=== PATIENT | female | born 1990 | race Caucasian/White ===

== ENCOUNTER → 2017-05-17 | Outpatient (CLI) | payer SELFPAY ==
--- NOTE | 2017-05-17 17:20 | Diagnostic Imaging Report ---
INDICATION: Dysfunctional uterine bleeding. FINDINGS: The endometrium is thickened and heterogeneous at 1.3 cm. There is no solid myometrial mass. Myometrial cystic focus is somewhat bilobed measuring less than 1 cm. This is separable from the endometrium. The right ovary is obscured from visualization by overlying shadowing bowel gas. The left ovary appears normal. There is no evidence for adnexal torsion. IMPRESSION: Myometrial cystic nodule may be an old degenerated fibroid. No solid myometrial mass. Mild thickening of the endometrium at 1.3 cm. Obscuration of the right ovary. Normal left ovary. No pelvic ascites. Dictated by: Dictated on workstation # [id number]
== END ==
LOC: RAD 10:36
PROVIDERS: ATTEND Family Medicine
DX: N85.8 Other specified noninflammatory disorders of uterus (principal); N92.1 Excessive and frequent menstruation with irregular cycle; N93.8 Other specified abnormal uterine and vaginal bleeding
CPT/HCPCS: 76830; 76856

== ENCOUNTER 2019-02-01 11:38 | Outpatient (RCR) | payer MEDICAID, OTHER ==
[2018-12-05 15:02] LABS: BASOPHILS # (AUTO) 0.1 10^3/uL (0.0-0.1); BASOPHILS % (AUTO) 1 % (0-10); EOSINOPHILS # (AUTO) 0.2 10^3/uL (0.0-0.3); EOSINOPHILS % (AUTO) 2 % (0-10); HEMATOCRIT 34 % (35-52); HEMOGLOBIN 9.7 G/DL (11.5-16.0); LYMPHOCYTES % (AUTO) 30 % (12-44); MEAN CORPUSCULAR HEMOGLOBIN 20 PG (25-34); MEAN CORPUSCULAR HGB CONC 28 G/DL (32-36); MEAN CORPUSCULAR VOLUME 71 FL (80-99); MEAN PLATELET VOLUME 10.2 FL (7.4-10.4); MONOCYTES # (AUTO) 0.6 X 10^3 (0.0-1.0); MONOCYTES % (AUTO) 5 % (0-12); NEUTROPHILS # (AUTO) 8.2 X 10^3 (1.8-7.8); NEUTROPHILS % (AUTO) 63 % (42-75); PLATELET COUNT 326 10^3/uL (130-400); RED CELL DISTRIBUTION WIDTH 27.2 % (10.0-14.5); WHITE BLOOD COUNT 13.1 10^3/uL (4.3-11.0)
[2019-01-23 11:42] LABS: BASOPHILS # (AUTO) 0.1 10^3/uL (0.0-0.1); BASOPHILS % (AUTO) 1 % (0-10); EOSINOPHILS # (AUTO) 0.2 10^3/uL (0.0-0.3); EOSINOPHILS % (AUTO) 1 % (0-10); HEMATOCRIT 40 % (35-52); HEMOGLOBIN 12.4 G/DL (11.5-16.0); LYMPHOCYTES # (AUTO) 3.3 X 10^3 (1.0-4.0); LYMPHOCYTES % (AUTO) 27 % (12-44); MEAN CORPUSCULAR HEMOGLOBIN 24 PG (25-34); MEAN CORPUSCULAR HGB CONC 31 G/DL (32-36); MEAN CORPUSCULAR VOLUME 78 FL (80-99); MEAN PLATELET VOLUME 10.6 FL (7.4-10.4); MONOCYTES # (AUTO) 0.6 X 10^3 (0.0-1.0); MONOCYTES % (AUTO) 5 % (0-12); NEUTROPHILS # (AUTO) 8.2 X 10^3 (1.8-7.8); NEUTROPHILS % (AUTO) 66 % (42-75); PLATELET COUNT 305 10^3/uL (130-400); RED CELL DISTRIBUTION WIDTH 23.5 % (10.0-14.5); WHITE BLOOD COUNT 12.3 10^3/uL (4.3-11.0)
[2019-01-23 11:58] LABS: FIBRIN DEGRADATION PRODUCTS 0.8 UG/ML (0.00-0.49); PROTHROMBIN TIME PATIENT 13.4 SEC (12.2-14.7)
[2019-01-23 12:02] LABS: ALANINE AMINOTRANSFERASE 37 U/L (0-55); ALBUMIN 4.1 GM/DL (3.2-4.5); ALKALINE PHOSPHATASE 70 U/L (40-136); BILIRUBIN,TOTAL 0.4 MG/DL (0.1-1.0); BUN/CREATININE RATIO 17; CALCIUM 9.6 MG/DL (8.5-10.1); CARBON DIOXIDE 23 MMOL/L (21-32); CHLORIDE 105 MMOL/L (98-107); CREATININE SERUM 0.69 MG/DL (0.60-1.30); GFR ESTIMATED > 60; GLUCOSE 122 MG/DL (70-105); POTASSIUM 4.1 MMOL/L (3.6-5.0); SODIUM 138 MMOL/L (135-145); TOTAL PROTEIN 7.8 GM/DL (6.4-8.2)
[~2019-02-01 11:38] MED LIST: ACETAMINOPHEN 500 MG TAB (TYLENOL) CANCER CTR ONE; ACETAMINOPHEN 500 MG TAB (TYLENOL) CANCER CTR PO PRN; FERRIC CARBOXYMALTOSE (CANCER) 750 MG in NS (IVPB) CANCER CENTER 250 ML IV SCH; IRON SUCROSE 100 MG/5 ML (VENOFER) VIAL CANCER CTR IV SCH; diphenhydrAMINE 50 MG/ML INJ (CANCER CENTER) IV PRN; diphenhydrAMINE 50 MG/ML INJ (CANCER CENTER) ONE; methylPREDNISolone 125 MG/2 ML (SOLU-MEDROL) CANCER CTR IV PRN
== END 2019-02-07 | disposition home or self-care (01) ==
LOC: ONC 11:38
PROVIDERS: ATTEND Internal Medicine Hematology & Oncology
DX: D50.9 Iron deficiency anemia, unspecified (principal); N92.0 Excessive and frequent menstruation with regular cycle; K52.9 Noninfective gastroenteritis and colitis, unspecified; E03.9 Hypothyroidism, unspecified; G43.909 Migraine, unspecified, not intractable, without status migrainosus; E66.01 Morbid (severe) obesity due to excess calories; Z68.41 Body mass index [BMI] 40.0-44.9, adult; Z79.899 Other long term (current) drug therapy
CPT/HCPCS: 36415; 80053; 82728; 83540; 85025; 85379; 85384; 85610; 85730; 96374; 96375; 99213; 99214

== ENCOUNTER → 2020-10-06 | Outpatient (CLI) | payer BC ==
--- NOTE | 2020-10-06 11:46 | Diagnostic Imaging Report ---
PROCEDURE: Pelvic comp/transvaginal sonogram. TECHNIQUE: Complete transabdominal and transvaginal pelvic ultrasound was performed. In addition, limited pelvic Doppler was performed. INDICATION: Secondary amenorrhea. FINDINGS: Uterus is anteverted measuring 9.0 x 4.2 x 4.9 cm. Endometrium is 11 mm in thickness. No myometrial mass is identified on today's study. Right ovary was not visualized. Left ovary measures 3.7 x 2.2 x 1.9 cm. Left ovary contains small follicles. There is blood flow to left ovary. No adnexal mass or free fluid is seen. There are multiple cervical nabothian cysts. IMPRESSION: Nonvisualized right ovary. The study is otherwise unremarkable. Dictated by: Dictated on workstation # [id number]
== END ==
LOC: RAD 09:51
PROVIDERS: ATTEND Obstetrics & Gynecology
DX: N91.1 Secondary amenorrhea (principal)
CPT/HCPCS: 76830; 76856

== ENCOUNTER 2021-06-09 18:57 | Inpatient (IN) | payer SELFPAY ==
[~2021-06-09] VITALS: Ht 167.7 cm; Wt 125.1 kg
[2021-06-09] MEDS ORDERED: NS IV 1000 ML 1,000 ML IV SCH (19:15)
--- NOTE | 2021-06-09 19:31 | ED General ---
General Stated Complaint: COVID+,FINGERS AND LIPS BLUE,TROUBLE BREATHING Source of Information: Patient History of Present Illness Date Seen by Provider: Jun 09, 2021 Time Seen by Provider: 19:06 Initial Comments 31-year-old female presenting with complaints of shortness of breath and feeling like her lips and fingers were blue. She was diagnosed with Covid on of last week with a test at urgent care here in [place]. She states that her sister and child were both recently positive for Covid. She just started having diarrhea today. She has been having fevers up to 103 T-max over the last week. She said that today was the first day she was able to actually break her fever. She recently moved to [place] and does not have a primary care physician. She denies any other chronic medical conditions. She does not take any chronic medications. She has an allergy to penicillin that she thinks causes a rash. Timing/Duration: 1 Week Severity: Severe Modifying Factors: worse with Movement (more winded and short of breath with exertion) Associated Systoms: No Chest Pain; Cough; No Diaphoresis; Fever/Chills, Headaches, Malaise; No Nausea/Vomiting, No Seizure; Shortness of Air; No Syncope; Weakness Allergies and Home Medications Allergies Coded Allergies: ferric carboxymaltose (Verified Allergy, Intermediate, 11/16/18) Penicillins (Verified Allergy, Unknown, 11/16/18) Patient Home Medication List Home Medication List Reviewed: Yes Review of Systems Review of Systems Constitutional: chills, fever, malaise EENTM: nose congestion Respiratory: cough, dyspnea on exertion, short of breath; No stridor; wheezing Cardiovascular: No chest pain, No edema Gastrointestinal: No abdominal pain; diarrhea; No nausea, No vomiting Genitourinary: No dysuria Musculoskeletal: muscle pain (generalized body aches) Skin: No rash Psychiatric/Neurological: Headache Hematologic/Lymphatic: Denies Blood Clots Past Cvzjhfl-Bmbuzr-Gfzrko Hx Patient Social History Tobacco Use?: No Past Medical History Respiratory: No Cardiac: No Neurological: No Reproductive Disorders: No Genitourinary: No Gastrointestinal: No Musculoskeletal: No Endocrine: No HEENT: No Psychosocial: No Physical Exam Vital Signs Vital Signs - First Documented 06/09/21 19:05 Temp 37.1 Pulse 105 Resp 20 B/P (MAP) 130/66 (87) Pulse Ox 72 O2 Delivery Room Air O2 Flow Rate 8.00 Capillary Refill : Height, Weight, BMI Height: '" Weight: lbs. oz. kg; BMI Method: General Appearance: Anxious, Mild Distress, Obese HEENT: PERRL/EOMI, Pharynx Normal Neck: Full Range of Motion, Normal Inspection, Non Tender, Supple Respiratory: Chest Non Tender, Accessory Muscle Use, Decreased Breath Sounds, Respiratory Distress, Rhonci Cardiovascular: Normal Peripheral Pulses, Tachycardia Gastrointestinal: Normal Bowel Sounds, No Pulsatile Mass, Non Tender, Soft Rectal: Deferred Back: No CVA Tenderness Extremity: Normal Capillary Refill, Normal Inspection, No Calf Tenderness, No Pedal Edema Neurologic/Psychiatric: Alert, Oriented x3, steam box tender II-XII Norm as Tested Skin: Warm/Dry Focused Exam Lactate Level 06/09/21 19:36: Lactic Acid Level 1.04 Lactic Acid Level Laboratory Tests Test 06/09/21 19:36 Lactic Acid Level 1.04 MMOL/L (0.50-2.00) Progress/Results/Core Measures Suspected Sepsis SIRS Temperature: Pulse: Respiratory Rate: Laboratory Tests 06/09/21 19:36: White Blood Count 5.4 Blood Pressure / Mean: 06/09/21 19:36: Lactic Acid Level 1.04 Laboratory Tests 06/09/21 19:36: Creatinine 0.78, INR Comment 1.0, Platelet Count 193, Total Bilirubin 0.5 Results/Orders Lab Results Laboratory Tests Test 06/09/21 19:36 06/09/21 20:04 Range/Units White Blood Count 5.4 4.3-11.0 10^3/uL Red Blood Count 4.46 3.80-5.11 10^6/uL Hemoglobin 9.6 L 11.5-16.0 g/dL Hematocrit 32 L 35-52 % Mean Corpuscular Volume 71 L 80-99 fL Mean Corpuscular Hemoglobin 22 L 25-34 pg Mean Corpuscular Hemoglobin Concent 30 L 32-36 g/dL Red Cell Distribution Width 18.5 H 10.0-14.5 % Platelet Count 193 130-400 10^3/uL Mean Platelet Volume 11.5 9.0-12.2 fL Immature Granulocyte % (Auto) 1 % Neutrophils (%) (Auto) 71 42-75 % Lymphocytes (%) (Auto) 26 12-44 % Monocytes (%) (Auto) 2 0-12 % Eosinophils (%) (Auto) 0 0-10 % Basophils (%) (Auto) 0 0-10 % Neutrophils # (Auto) 3.9 1.8-7.8 X 10^3 Lymphocytes # (Auto) 1.4 1.0-4.0 X 10^3 Monocytes # (Auto) 0.1 0.0-1.0 X 10^3 Eosinophils # (Auto) 0.0 0.0-0.3 10^3/uL Basophils # (Auto) 0.0 0.0-0.1 10^3/uL Immature Granulocyte # (Auto) 0.0 0.0-0.1 10^3/uL Prothrombin Time 13.8 12.2-14.7 SEC INR Comment 1.0 0.8-1.4 Activated Partial Thromboplast Time 33 24-35 SEC D-Dimer 0.92 H 0.00-0.49 UG/ML Sodium Level 136 135-145 MMOL/L Potassium Level 3.0 L 3.6-5.0 MMOL/L Chloride Level 97 L 98-107 MMOL/L Carbon Dioxide Level 25 21-32 MMOL/L Anion Gap 14 5-14 MMOL/L Blood Urea Nitrogen 5 L 7-18 MG/DL Creatinine 0.78 0.60-1.30 MG/DL Estimat Glomerular Filtration Rate 87 BUN/Creatinine Ratio 6 Glucose Level 93 70-105 MG/DL Lactic Acid Level 1.04 0.50-2.00 MMOL/L Calcium Level 8.1 L 8.5-10.1 MG/DL Corrected Calcium 8.3 L 8.5-10.1 MG/DL Total Bilirubin 0.5 0.1-1.0 MG/DL Aspartate Amino Transf (AST/SGOT) 34 5-34 U/L Alanine Aminotransferase (ALT/SGPT) 23 0-55 U/L Alkaline Phosphatase 54 40-136 U/L Troponin I < 0.30 <0.30 NG/ML C-Reactive Protein 17.44 H <0.50 MG/DL Total Protein 7.7 6.4-8.2 GM/DL Albumin 3.7 3.2-4.5 GM/DL Serum Test, Qualitative NEGATIVE NEGATIVE Blood Gas Puncture Site LEFT RADIAL Blood Gas Patient Temperature 37.1 Arterial Blood pH 7.45 H 7.37-7.43 Arterial Blood Partial Pressure CO2 39 35-45 MMHG Arterial Blood Partial Pressure O2 59 L 79-93 MMHG Arterial Blood HCO3 27 23-27 MMOL/L Arterial Blood Total CO2 28.3 21.0-31.0 MMOL/L Arterial Blood Oxygen Saturation 91 L 94-100 % Arterial Blood Base Excess 3.0 H -2.5-2.5 MMOL/L Meng Test YES-POS Blood Gas Ventilator Setting NO Blood Gas Inspired Oxygen 8 L My Orders Orders - ZIGGY SANCHEZ MD Monitor-Rhythm Ecg Trace Only (06/09/21 19:07) Ed Iv/Invasive Line Start (06/09/21 19:07) Cbc With Automated Diff (06/09/21 19:07) Comprehensive Metabolic Panel (06/09/21 19:07) Crp Fs (06/09/21 19:07) Troponin I Fs (06/09/21 19:07) Protime With Inr (06/09/21 19:07) Partial Thromboplastin Time (06/09/21 19:07) Ekg Tracing (06/09/21 19:07) Arterial Blood Gas (06/09/21 19:07) Ns Iv 1000 Ml (Sodium Chloride 0.9%) (06/09/21 19:15) Blood Culture (06/09/21 19:07) Ua Culture If Indicated (06/09/21 19:07) Hcg,Qualitative Serum (06/09/21 19:07) Fibrin Degradation Products (06/09/21 19:07) Chest 1 View Ap/Pa Only (06/09/21 19:07) O2 (06/09/21 19:07) Lactic Acid Analyzer (06/09/21 19:07) Albuterol Inhaler (Albuterol) (06/09/21 19:45) Dexamethasone Injection (Decadron Inje (06/09/21 19:42) Nursing Communication (Order) (06/09/21 19:45) Medications Given in ED Current Medications Medications Dose Ordered Sig/Nisha Route Start Time Stop Time Status Last Admin Dose Admin Albuterol Sulfate 2 PUFFS [id number] prn soa Q2H PRN IH 06/09/21 19:45 06/09/21 19:56 8.5 GM Vital Signs/I&O 06/09/21 06/09/21 19:05 19:05 Temp 37.1 Pulse 105 Resp 20 B/P (MAP) 130/66 (87) Pulse Ox 72 92 O2 Delivery Room Air Nasal Cannula O2 Flow Rate 8.00 Capillary Refill : Progress Note #1: Progress Note Placed on supplemental oxygen as she was having O2 sats in the 70% range on room air. Obtain labs, blood cultures, lactic acid, electrocardiogram, chest x-ray, urinalysis, D-Dimer. Give IV fluids for hydration. IV Decadron for her breathing. Try albuterol inhaler with spacer to help with her breathing. Anticipate admission of the patient since she is requiring supplemental oxygen to maintain O2 sat above 90% Progress Note #2: Progress Note Patient's oxygen saturations improved on 8 L high flow O2 by nasal cannula. She came up to 92 to 94%. Her chest x-ray shows diffuse patchy infiltrate consistent with atypical pneumonia or Covid. Her blood count was normal at 5.4 with some mild anemia having a hemoglobin of 9.6. Her lactic acid came back negative at 1.04. Her creatinine was normal at 0.78. Cardiac enzymes were normal. She did have elevated CRP. Her ABG showed pH of 7.45, PCO2 of 39, PO2 of 59. This came out to an O2 sat of 91%. She was he was on 8 L/min of supplemental oxygen by high flow nasal cannula Will call Dr. Plasencia for the hospitalist service about admission Progress Note #3: Time: 20:28 Progress Note Discussed with Dr. Plasencia and he accepted patient for admission. He did request to give her Lovenox 40 mg subcu every 12 hours with her elevated D-dimer and Covid pneumonia. Will use the Covid order set for the admission and RT MAT protocol. [facility] are [facility] as well. ECG Initial ECG Impression Date: Jun 09, 2021 Initial ECG Impression Time: 19:33 Initial ECG Rate: 103 Initial ECG Rhythm: S.Tach Initial ECG Comparisson: No Previous ECG Available Comment Sinus tachycardia with a heart rate of 103 bpm. Low voltage precordial leads. [place] interval 158 ms. QT interval 329 ms. Her QTc interval is 431 ms. She has no acute ST elevation. She has nonspecific T wave abnormalities in the anteroseptal leads I, aVL, V2 through V6. She has no prior tracing for comparison. Diagnostic Imaging Diagonstic Imaging: Xray Plain Films/CT/US/NM/MRI: chest Comments NAME: KAMERON LOPEZ [facility] REC#: [id number] PT STATUS: REG ER : 1990 PHYSICIAN: ZIGGY SANCHEZ MD ADMIT DATE: 06/09/21/ER FS Draft Date of Exam:06/09/21 CHEST 1 VIEW AP/PA ONLY INDICATION: Hypoxia and shortness of breath. FINDINGS: The heart size is normal. There are bilateral pulmonary infiltrates, right greater than left. There is no pleural effusion or pneumothorax. The mediastinum is unremarkable. IMPRESSION: Bilateral pulmonary infiltrates suspect for atypical pneumonia possibly Covid. Some underlying central pulmonary venous congestion cannot be excluded. Dictated on workstation # [id number] Dict: 06/09/211942 Trans: 06/09/211947 [facility] [id number] Interpreted by: ALEKS SNYDER MD Electronically signed by: Reviewed: Reviewed by Me Departure Communication (Admissions) Time/Spoke to Admitting Phy: 20:[address] Plasencia for the hospitalist service. He accepts the patient for admission with Covid pneumonia and hypoxia. He recommended giving Lovenox 40 mg subcu every 12 hours with her elevated D-dimer. Will trend the D-dimer rather depend obtaining CT scan of her chest at this point. Use the Covid order set and RT MAT protocol. Impression Primary Impression: Hypoxemia Additional Impressions: Lower respiratory tract infection due to COVID-19 virus Diarrhea due to COVID-19 Disposition: 30 STILL A PATIENT Condition: Critical Admissions Decision to Admit Reason: Admit from ER (General) Decision to Admit/Date: Jun 09, 2021 Time/Decision to Admit Time: 20:28 Departure-Patient Inst. Referrals: NO,LOCAL PHYSICIAN (PCP/Family) Primary Care Physician ZIGGY SANCHEZ MD Jun 09, 2021 19:31
[2021-06-09] MEDS ORDERED: RT-ALBUTEROL HFA 8.5 GM INHALER IH PRN ×3 (19:45→23:15)
--- NOTE | 2021-06-09 19:49 | Diagnostic Imaging Report ---
INDICATION: Hypoxia and shortness of breath. FINDINGS: The heart size is normal. There are bilateral pulmonary infiltrates, right greater than left. There is no pleural effusion or pneumothorax. The mediastinum is unremarkable. IMPRESSION: Bilateral pulmonary infiltrates suspect for atypical pneumonia possibly Covid. Some underlying central pulmonary venous congestion cannot be excluded. Dictated by: Dictated on workstation # [id number]
[2021-06-09 19:59] LABS: BASOPHILS % (AUTO) 0 % (0-10); EOSINOPHILS % (AUTO) 0 % (0-10); HEMATOCRIT 32 % (35-52); HEMOGLOBIN 9.6 g/dL (11.5-16.0); LYMPHOCYTES % (AUTO) 26 % (12-44); MEAN CORPUSCULAR HEMOGLOBIN 22 pg (25-34); MEAN CORPUSCULAR HGB CONC 30 g/dL (32-36); MEAN CORPUSCULAR VOLUME 71 fL (80-99); MEAN PLATELET VOLUME 11.5 fL (9.0-12.2); NEUTROPHILS % (AUTO) 71 % (42-75); PLATELET COUNT 193 10^3/uL (130-400); WHITE BLOOD COUNT 5.4 10^3/uL (4.3-11.0)
[2021-06-09 20:00] LABS: LYMPHOCYTES # (AUTO) 1.4 X 10^3 (1.0-4.0); MONOCYTES # (AUTO) 0.1 X 10^3 (0.0-1.0); MONOCYTES % (AUTO) 2 % (0-12); NEUTROPHILS # (AUTO) 3.9 X 10^3 (1.8-7.8)
[2021-06-09 20:09] LABS: ABG OXYGEN SATURATION 91 % (94-100); ABG PCO2 39 MMHG (35-45); ABG PH 7.45 (7.37-7.43); ABG PO2 59 MMHG (79-93); ABG TCO2 28.3 MMOL/L (21.0-31.0); ALLENS TEST YES-POS; INSPIRED O2 8 L; PATIENT TEMP 37.1; VENTILATOR NO
[2021-06-09 20:10] LABS: PROTHROMBIN TIME PATIENT 13.8 SEC (12.2-14.7)
[2021-06-09 20:13] LABS: ALANINE AMINOTRANSFERASE 23 U/L (0-55); ALBUMIN 3.7 GM/DL (3.2-4.5); ALKALINE PHOSPHATASE 54 U/L (40-136); BILIRUBIN,TOTAL 0.5 MG/DL (0.1-1.0); BUN/CREATININE RATIO 6; CALCIUM 8.1 MG/DL (8.5-10.1); CARBON DIOXIDE 25 MMOL/L (21-32); CHLORIDE 97 MMOL/L (98-107); CREATININE SERUM 0.78 MG/DL (0.60-1.30); GFR ESTIMATED 87; GLUCOSE 93 MG/DL (70-105); SODIUM 136 MMOL/L (135-145); TOTAL PROTEIN 7.7 GM/DL (6.4-8.2)
[2021-06-09 21:21] LABS: BILIRUBIN,URINE NEGATIVE (NEGATIVE); CLARITY,URINE SL CLOUDY; COLOR,URINE RED; GLUCOSE, URINE (UA) NEGATIVE (NEGATIVE); KETONES,URINE NEGATIVE (NEGATIVE); LEUKOCYTE ESTERASE ,URINE NEGATIVE (NEGATIVE); NITRITE,URINE NEGATIVE (NEGATIVE); PROTEIN,URINE 2+ (NEGATIVE)
[2021-06-09 21:26] LABS: BACTERIA,URINE NEGATIVE /HPF; RBC,URINE >100 /HPF
[2021-06-09] MEDS ORDERED: ONDANSETRON 4 MG (ZOFRAN) ORAL DISSOLVE TAB PO PRN (22:15)
[2021-06-09] MEDS: ENOXAPARIN 40 MG/0.4 ML (LOVENOX) SYR SC SCH (22:28)
[2021-06-09] MEDS: LACTATED RINGERS 1,000 ML IV SCH (22:28)
[2021-06-09] MEDS: guaiFENesin SYRUP 100 MG/5 ML 10 ML (ROBITUSSIN SF) PO SCH (22:28)
[2021-06-09] MEDS: ACETAMINOPHEN 325 MG TABLET PO PRN (22:30)
[2021-06-09 22:57] VITALS: BP 129/65
--- NOTE | 2021-06-09 23:23 | Tele-ICU Progress Note ---
Progress Note 31F admitted with hypoxia, COVID. Reportedly tested positive last Thurs. Has been having increasing SOB since. Today noted progressive worsening in addition to cyanosis of fingers and mouth prompting ED visit. On arrival, found to have SpO2 65-70% on RA. Initiated on 8L HFNC wutg SpO2 92-94%. She arrived from [facility] in stable condition. BP 127/77. SpO2 in 80s onHFNC, 90s after transition to vapotherm. COVID protocol initiated, supportive care ongoing. Appears stable at this time but high risk for further decompensation given recent trajectory. Focused Exam Lactate Level 06/09/21 19:36: Lactic Acid Level 1.04 Height, Weight, BMI Height: '" Weight: lbs. oz. kg; 44.44 BMI Method: Lactic Acid Level Laboratory Tests Test 06/09/21 19:36 Lactic Acid Level 1.04 MMOL/L (0.50-2.00) BERTRAND AMBRIZ MD Jun 09, 2021 23:23
[2021-06-10] MEDS: guaiFENesin SYRUP 100 MG/5 ML 10 ML (ROBITUSSIN SF) PO SCH (02:27)
[2021-06-10 05:09] LABS: BASOPHILS % (AUTO) 0 % (0-10); EOSINOPHILS % (AUTO) 0 % (0-10); HEMATOCRIT 30 % (35-52); HEMOGLOBIN 9.1 g/dL (11.5-16.0); LYMPHOCYTES # (AUTO) 0.7 10^3/uL (1.0-4.0); LYMPHOCYTES % (AUTO) 16 % (12-44); MEAN CORPUSCULAR HEMOGLOBIN 22 pg (25-34); MEAN CORPUSCULAR HGB CONC 30 g/dL (32-36); MEAN CORPUSCULAR VOLUME 71 fL (80-99); MEAN PLATELET VOLUME 11.2 fL (9.0-12.2); MONOCYTES # (AUTO) 0.1 10^3/uL (0.0-1.0); MONOCYTES % (AUTO) 2 % (0-12); NEUTROPHILS # (AUTO) 3.3 10^3/uL (1.8-7.8); NEUTROPHILS % (AUTO) 81 % (42-75); PLATELET COUNT 190 10^3/uL (130-400)
[2021-06-10 05:21] LABS: ALBUMIN 3.5 GM/DL (3.2-4.5); POTASSIUM 3.4 MMOL/L (3.6-5.0)
[2021-06-10 05:22] LABS: CALCIUM 8.1 MG/DL (8.5-10.1)
[2021-06-10 05:23] LABS: TOTAL PROTEIN 7.2 GM/DL (6.4-8.2)
[2021-06-10 05:25] LABS: BILIRUBIN,TOTAL 0.4 MG/DL (0.1-1.0)
[2021-06-10 05:27] LABS: CREATININE SERUM 0.7 MG/DL (0.60-1.30); PHOSPHORUS 3.9 MG/DL (2.3-4.7)
[2021-06-10 05:36] LABS: ATYPICAL LYMPHOCYTES 1 %; LYMPHOCYTES % (MANUAL) 17 %; MONOCYTES % (MANUAL) 2 %; NEUTROPHILS % (MANUAL) 80 %; POLYCHROMASIA SLIGHT
[2021-06-10 05:37] LABS: ANISOCYTOSIS SLIGHT; ELLIPT/OVALOCYTES SLIGHT; HYPOCHROMASIA MODERATE; MICROCYTOSIS SLIGHT; POIKILOCYTOSIS SLIGHT
[2021-06-10] MEDS ORDERED: guaiFENesin/CODEINE (ROBITUSSIN AC) 10ML UDC PO PRN (06:30)
[2021-06-10 06:43] LABS: CREATINE KINASE MB 0.7 NG/ML (<6.6)
[2021-06-10] MEDS ORDERED: FLU QUADRIvalent (3YOA+) 60 mcg/0.5 ml 2021-22(AFLURIA) IM ONE (07:15)
[2021-06-10] MEDS: RT-ALBUTEROL HFA 8.5 GM INHALER IH SCH ×7 (07:37→22:30)
[2021-06-10] MEDS: POTASSIUM CL 10MEQ/50ML IVPB 50 ML IV SCH (07:45)
[2021-06-10] MEDS: KCL 20 MEQ TAB (K-DUR) PO SCH (07:46)
[2021-06-10] MEDS: MAGNESIUM 1 GM/100 ML IVPB 100 ML IV SCH (07:46)
[2021-06-10] MEDS ORDERED: KCL 20 MEQ TAB (K-DUR) PO ONE (08:00)
[2021-06-10] MEDS: ACETAMINOPHEN 325 MG TABLET PO PRN ×2 (08:21→20:05)
[2021-06-10] MEDS: guaiFENesin (MUCINEX) 600 MG TAB PO SCH ×3 (08:21→20:05)
[2021-06-10] MEDS: dexAMETHasone 6 MG TAB (DECADRON) PO SCH (08:21)
[2021-06-10] MEDS: BENZONATATE 100 MG (TESSALON) CAPSULE PO SCH ×3 (08:22→20:05)
[2021-06-10] MEDS: ENOXAPARIN 40 MG/0.4 ML (LOVENOX) SYR SC SCH ×2 (08:22→20:06)
[2021-06-10] MEDS: UMECLIDINIUM BROMIDE (INCRUSE ELLIPTA) 7'S IH SCH ×2 (10:31→10:50)
[2021-06-10] MEDS ORDERED: ACET-2267 PO (10:55)
[2021-06-10] MEDS ORDERED: IBUP-2185 PO (10:55)
[2021-06-10] MEDS ORDERED: ALBU18HF2 INH (10:55)
[2021-06-10] MEDS ORDERED: TOCILIZUMAB INJECTION (NON-FOR 800 MG in NS (IVPB) 60 ML IV NR (13:11)
--- NOTE | 2021-06-10 14:14 | Tele-ICU Progress Note ---
Subjective Date Seen by a Provider: Jun 10, 2021 Time Seen by a Provider: 11:25 Subjective/Events-last exam STILL HAS SHORTNESS OF BREATH. ON VT. MORBIDLY OBESE. Sepsis Event Evaluation Height, Weight, BMI Height: '" Weight: lbs. oz. kg; 44.44 BMI Method: Focused Exam Lactate Level 06/09/21 19:36: Lactic Acid Level 1.04 Exam Exam Patient acknowledged, consented, and participated in this virtual visit which was conducted using real time audio/video Vital Signs Date Time Temp Pulse Resp B/P (MAP) Pulse Ox O2 Delivery O2 Flow Rate FiO2 06/10/21 12:57 92 06/10/21 12:00 88 20 122/68 97 Vapotherm 40.00 100.00 06/10/21 11:47 35.9 06/10/21 11:43 37.3 06/10/21 11:00 103 18 128/71 90 Vapotherm 40.00 100.00 06/10/21 10:32 95 Vapotherm 40.00 90 06/10/21 10:00 88 28 124/62 90 Vapotherm 40.00 100.00 06/10/21 09:00 92 28 113/69 93 Vapotherm 40.00 100.00 06/10/21 08:00 91 26 134/74 90 Vapotherm 40.00 100.00 06/10/21 07:37 90 Vapotherm 30.00 100 06/10/21 07:15 81 06/10/21 07:00 76 24 127/71 94 Vapotherm 30.00 65.00 06/10/21 06:00 79 120/61 91 Vapotherm 30.00 65.00 06/10/21 05:00 78 17 115/59 91 Vapotherm 30.00 65.00 06/10/21 04:00 37.2 06/10/21 04:00 84 30 114/61 91 Vapotherm 30.00 65.00 06/10/21 04:00 91 Vapotherm 30.00 80 06/10/21 03:00 90 32 121/60 91 Vapotherm 30.00 65.00 06/10/21 02:41 90 Vapotherm 30.00 80 06/10/21 02:00 85 30 125/67 91 Vapotherm 30.00 65.00 06/10/21 01:00 92 06/10/21 01:00 86 30 139/90 92 Vapotherm 30.00 65.00 06/10/21 00:00 97 122/64 91 Vapotherm 30.00 65.00 06/10/21 00:00 91 Vapotherm 30.00 80 06/09/21 23:47 110 06/09/21 23:00 95 29 122/71 91 Vapotherm 30.00 65.00 06/09/21 23:00 92 Vapotherm 30.00 70 06/09/21 22:57 38.3 107 72 60 06/09/21 22:45 Vapotherm 30.00 80 06/09/21 22:30 38.3 06/09/21 22:00 105 27 84 Nasal Cannula 8.00 06/09/21 21:00 107 20 129/65 92 Nasal Cannula 8.00 06/09/21 20:30 103 20 126/66 93 Nasal Cannula 8.00 06/09/21 20:00 101 20 109/60 93 Nasal Cannula 8.00 06/09/21 19:30 105 20 109/61 92 Nasal Cannula 8.00 06/09/21 19:05 92 Nasal Cannula 8.00 06/09/21 19:05 37.1 105 20 130/66 (87) 72 Room Air I & O 06/10/21 07:00 Intake Total 1800 ml Output Total 200 ml Balance 1600 ml Height & Weight Height: '" Weight: lbs. oz. kg; 44.44 BMI Method: General Appearance: Anxious, Mild Distress, Obese HEENT: PERRL/EOMI, Pharynx Normal Neck: Full Range of Motion, Normal Inspection, Non Tender, Supple Respiratory: Chest Non Tender, Accessory Muscle Use, Decreased Breath Sounds, Respiratory Distress, Rhonci Cardiovascular: Normal Peripheral Pulses, Tachycardia Capillary Refill: Less Than 3 Seconds Extremity: Normal Capillary Refill, Normal Inspection, No Calf Tenderness, No Pedal Edema Neurologic/Psychiatric: Alert, Oriented x3, wood heel cementer II-XII Norm as Tested Skin: Warm/Dry Other comments PE PER RN Results Lab Laboratory Tests 06/09/21 19:36 06/10/21 04:50 Assessment/Plan Assessment/Plan 1. COVID -19 VIRAL PNEUMONIA. 2. ACUTE HYPOXIC RESPIRATORY FAILURE 3. MORBID OBESITY. 4. HIGH RISK FOE DVT AND PE RECOMMENDATIONS. 1. CONTINUE DEXAMETHASONE 2.LOVENOX S/Q 3. AGREE WITH TOCILIZUMAUB 4. MONITOR BLOOD SUGARS 5. OXYGENATE WITH VAPOTHERM AND WEAN O2 TOLERATED Critical Care: Critically Ill Patient Time spent with patient (mins): 25 CLIFFORD ALEMAN MD Jun 10, 2021 14:14
[2021-06-10] MEDS: LACTATED RINGERS 1,000 ML IV SCH (18:21)
--- NOTE | 2021-06-10 19:16 | History & Physical-Hospitalist ---
History of Present Illness HPI/Chief Complaint Kathleen Barahona is a 31 year old female who presented with shortness of breath. She was diagnosed with COVID recently. She had been exposed to a couple family members with COVID. She is unvaccinated. She was at home when her found her with blue lips, face, and fingers. She has been having fevers. She has had a cough. She is not having nausea or vomiting. She has had diarrhea. She has a poor appetite. She does not have any known medical problems. She does not take any medications regularly. She does not smoke, drink alcohol, or use illicit drugs. Source: patient Exam Limitations: no limitations Date Seen 06/10/21 Time Seen by a Provider: 09:10 Attending Physician Rufino Plasencia MD PCP No,Local Physician Referring Physician Date of Admission Jun 09, 2021 at 21:47 Home Medications & Allergies Home Medications Reviewed patient Home Medication Reconciliation performed by pharmacy medication reconciliations ct technician and/or nursing. Patients Allergies have been reviewed. Allergies Allergies Coded Allergies ferric carboxymaltose (Verified Allergy, Intermediate, 11/16/18) Penicillins (Verified Allergy, Unknown, 11/16/18) Past Qhakhyc-Ctzkph-Jlygec Hx Patient Social History Tobacco Use?: No Smoking Status: Never a Smoker Smokeless Tobacco Frequency: Never a User Use of E-Cig and/or Vaping dev: No Substance use?: No Alcohol Use?: No Pt feels they are or have been: Yes Immunizations Up To Date Tetanus Booster (TDap): Unknown Current Status status: No status: No Advance Directives: No Communicates: Verbally Primary Language: Ukrainian Preferred Spoken Language: Ukrainian Is interpretation needed?: No Family Medical History No Pertinent Family Hx Review of Systems Constitutional: fever, malaise EENTM: no symptoms reported Respiratory: cough, short of breath Cardiovascular: no symptoms reported Gastrointestinal: diarrhea Genitourinary: no symptoms reported Musculoskeletal: no symptoms reported Skin: no symptoms reported Psychiatric/Neurological: No Symptoms Reported Physical Exam Physical Exam Vital Signs Vital Signs - First Documented 06/09/21 06/09/21 19:05 22:45 Temp 37.1 Pulse 105 Resp 20 B/P (MAP) 130/66 (87) Pulse Ox 72 O2 Delivery Room Air O2 Flow Rate 8.00 FiO2 80 Capillary Refill : Less Than 3 Seconds Height, Weight, BMI Height: '" Weight: lbs. oz. kg; 44.44 BMI Method: General Appearance: No Apparent Distress, Obese HEENT: PERRL/EOMI, Pharynx Normal Neck: Normal Inspection, Supple Respiratory: No Respiratory Distress, Decreased Breath Sounds, Other (wearing Vapotherm) Cardiovascular: Regular Rate, Rhythm, No Edema, No Murmur Gastrointestinal: Normal Bowel Sounds, Non Tender, Soft Extremity: Normal Inspection, Non Tender, No Pedal Edema Neurologic/Psychiatric: Alert, Oriented x3, Normal Mood/Affect Skin: Normal Color, Warm/Dry Results Results/Procedures Labs Laboratory Tests 06/09/21 19:36 06/10/21 04:50 Patient resulted labs reviewed. Imaging: Reviewed Imaging Report Assessment/Plan Admission Diagnosis Acute respiratory failure due to COVID-19 Admission Status: Inpatient Order (span 2 midnights) Reason for Inpatient Admission: Respiratory failure Assessment and Plan Acute respiratory failure due to COVID-19 Lymphopenia associated with COVID-19 Elevated d-dimer Elevated CRP Morbid obesity COVID+, unvaccinated Begin Decadron Discussed Actemra, risks/benefits/EUA use, patient agrees Ddimer mildly elevated, trend Prophylactic Lovenox Procal normal, no antibiotics at this time Requiring Vapotherm, nearly maximal support High risk for intubation TeleICU following Diagnosis/Problems Diagnosis/Problems (1) Acute respiratory failure due to COVID-19 Status: Acute (2) Elevated d-dimer Status: Acute (3) Elevated C-reactive protein Status: Acute (4) Lymphopenia associated with COVID-19 Status: Acute (5) Morbid obesity Status: Chronic EYAD HINKLE MD Jun 10, 2021 19:16
[2021-06-10] MEDS: ACYCLOVIR 400 MG TABLET (ZOVIRAX) PO SCH (20:05)
[2021-06-10] MEDS: inSUlin ASPART (NovoLOG) 1 UNIT/0.01 ML (CHARGE PER UNIT) SC SCH (22:34)
[2021-06-11] MEDS ORDERED: BENZONATATE 100 MG (TESSALON) CAPSULE PO ONE (01:47)
[2021-06-11] MEDS: BENZONATATE 100 MG (TESSALON) CAPSULE PO SCH ×5 (02:20→22:15)
[2021-06-11] MEDS: RT-ALBUTEROL HFA 8.5 GM INHALER IH SCH ×6 (02:34→22:18)
[2021-06-11 04:34] LABS: BASOPHILS % (AUTO) 0 % (0-10); EOSINOPHILS % (AUTO) 0 % (0-10); HEMATOCRIT 32 % (35-52); HEMOGLOBIN 9.5 g/dL (11.5-16.0); LYMPHOCYTES # (AUTO) 1.2 10^3/uL (1.0-4.0); LYMPHOCYTES % (AUTO) 24 % (12-44); MEAN CORPUSCULAR HEMOGLOBIN 21 pg (25-34); MEAN CORPUSCULAR HGB CONC 30 g/dL (32-36); MEAN CORPUSCULAR VOLUME 72 fL (80-99); MEAN PLATELET VOLUME 11.2 fL (9.0-12.2); MONOCYTES # (AUTO) 0.2 10^3/uL (0.0-1.0); MONOCYTES % (AUTO) 4 % (0-12); NEUTROPHILS # (AUTO) 3.4 10^3/uL (1.8-7.8); NEUTROPHILS % (AUTO) 71 % (42-75); PLATELET COUNT 247 10^3/uL (130-400); WHITE BLOOD COUNT 4.9 10^3/uL (4.3-11.0)
[2021-06-11 04:45] LABS: ALBUMIN 3.4 GM/DL (3.2-4.5)
[2021-06-11 04:46] LABS: CALCIUM 8.6 MG/DL (8.5-10.1)
[2021-06-11 04:47] LABS: TOTAL PROTEIN 7.2 GM/DL (6.4-8.2)
[2021-06-11 04:49] LABS: BILIRUBIN,TOTAL 0.3 MG/DL (0.1-1.0)
[2021-06-11 04:51] LABS: CREATININE SERUM 0.65 MG/DL (0.60-1.30); PHOSPHORUS 2.9 MG/DL (2.3-4.7)
[2021-06-11 04:54] LABS: MAGNESIUM 2.3 MG/DL (1.6-2.4)
[2021-06-11] MEDS: KCL 20 MEQ TAB (K-DUR) PO SCH (05:04)
[2021-06-11] MEDS: POTASSIUM CL 10MEQ/50ML IVPB 50 ML IV SCH (05:04)
[2021-06-11] MEDS: MAGNESIUM 1 GM/100 ML IVPB 100 ML IV SCH (05:04)
[2021-06-11] MEDS: inSUlin ASPART (NovoLOG) 1 UNIT/0.01 ML (CHARGE PER UNIT) SC SCH ×3 (05:05→16:53)
[2021-06-11] MEDS ORDERED: DexMEDEtomidine 250 ML DRIP 250 ML IV ONE (05:14)
[2021-06-11] MEDS: DexMEDEtomidine 250 ML DRIP 250 ML IV SCH ×2 (05:24→18:42)
[2021-06-11 07:31] VITALS: BP 119/79
[2021-06-11] MEDS: ACYCLOVIR 400 MG TABLET (ZOVIRAX) PO SCH ×2 (08:53→22:15)
[2021-06-11] MEDS: ENOXAPARIN 40 MG/0.4 ML (LOVENOX) SYR SC SCH ×2 (08:53→22:15)
[2021-06-11] MEDS: guaiFENesin (MUCINEX) 600 MG TAB PO SCH ×2 (08:54→22:15)
[2021-06-11] MEDS: dexAMETHasone 6 MG TAB (DECADRON) PO SCH (08:54)
[2021-06-11] MEDS: UMECLIDINIUM BROMIDE (INCRUSE ELLIPTA) 7'S IH SCH (10:50)
[2021-06-11 10:51] VITALS: BP 115/82
[2021-06-11 12:28] LABS: ABG BASE EXCESS 3.2 MMOL/L (-2.5-2.5); ABG OXYGEN SATURATION 92 % (94-100); ABG PCO2 39 MMHG (35-45); ABG PH 7.45 (7.37-7.43); ABG PO2 60 MMHG (79-93); ABG TCO2 28.4 MMOL/L (21.0-31.0)
[2021-06-11 13:02] LABS: ALLENS TEST YES-POS; INSPIRED O2 100%; PATIENT TEMP 36.1; VENTILATOR NO
--- NOTE | 2021-06-11 13:39 | Tele-ICU Progress Note ---
Subjective Date Seen by a Provider: Jun 11, 2021 Time Seen by a Provider: 13:38 Sepsis Event Evaluation Height, Weight, BMI Height: '" Weight: lbs. oz. kg; 44.44 BMI Method: Focused Exam Lactate Level 06/09/21 19:36: Lactic Acid Level 1.04 Exam Exam Patient acknowledged, consented, and participated in this virtual visit which was conducted using real time audio/video Vital Signs Date Time Temp Pulse Resp B/P (MAP) Pulse Ox O2 Delivery O2 Flow Rate FiO2 06/11/21 13:00 69 06/11/21 12:07 36.1 06/11/21 10:51 64 54 93 100.00 06/11/21 10:00 66 115/82 91 NIV Bilevel 100.00 06/11/21 09:00 80 24 134/82 88 NIV Bilevel 100.00 06/11/21 08:00 67 11 122/78 92 NIV Bilevel 100.00 06/11/21 07:43 35.9 06/11/21 07:31 64 54 94 100.00 06/11/21 07:00 69 7 119/79 91 NIV Bilevel 100.00 06/11/21 07:00 68 06/11/21 06:00 71 122/72 91 NIV Bilevel 100.00 06/11/21 05:44 71 117/75 06/11/21 05:25 36.6 NIV Bilevel 100.00 06/11/21 05:24 82 129/69 06/11/21 05:00 82 21 129/69 88 Vapotherm 40.00 100.00 06/11/21 04:14 92 Vapotherm 40.00 100 06/11/21 04:00 70 30 123/56 82 Vapotherm 40.00 100.00 06/11/21 03:00 76 30 120/68 91 Vapotherm 40.00 100.00 06/11/21 02:34 90 Vapotherm 40.00 100 06/11/21 02:00 70 22 112/69 93 Vapotherm 40.00 100.00 06/11/21 01:00 74 28 115/65 93 Vapotherm 40.00 100.00 06/11/21 01:00 90 06/11/21 00:44 37.1 06/11/21 00:00 94 30 110/64 90 Vapotherm 40.00 100.00 06/10/21 23:59 93 Vapotherm 40.00 100 06/10/21 23:00 87 32 111/60 90 Vapotherm 40.00 100.00 06/10/21 22:30 89 Vapotherm 40.00 100 06/10/21 22:00 84 35 107/67 94 Vapotherm 40.00 100.00 06/10/21 21:00 98 35 105/52 94 Vapotherm 40.00 100.00 06/10/21 20:00 94 Vapotherm 40.00 100 06/10/21 20:00 90 31 118/67 92 Vapotherm 40.00 100.00 06/10/21 19:29 37.0 06/10/21 19:00 96 22 92 Vapotherm 40.00 100.00 06/10/21 19:00 96 06/10/21 18:32 90 Vapotherm 40.00 100 06/10/21 18:23 Vapotherm 40.00 100.00 06/10/21 18:00 96 18 111/53 93 Vapotherm 40.00 70.00 06/10/21 17:00 87 16 109/55 97 Vapotherm 40.00 70.00 06/10/21 16:51 Vapotherm 40.00 70.00 06/10/21 16:15 91 Vapotherm 40.00 90 06/10/21 16:00 88 18 131/72 93 Vapotherm 40.00 100.00 06/10/21 16:00 36.6 06/10/21 15:00 92 16 95/85 93 Vapotherm 40.00 100.00 06/10/21 14:18 93 Vapotherm 40.00 90 06/10/21 14:00 90 20 136/75 92 Vapotherm 40.00 100.00 I & O 06/11/21 07:00 Intake Total 3125 ml Output Total 2525 ml Balance 600 ml Height & Weight Height: '" Weight: lbs. oz. kg; 44.44 BMI Method: General Appearance: No Apparent Distress, Obese HEENT: PERRL/EOMI, Pharynx Normal Neck: Normal Inspection, Supple Respiratory: No Respiratory Distress, Decreased Breath Sounds, Other (wearing Vapotherm) Cardiovascular: Regular Rate, Rhythm, No Edema, No Murmur Capillary Refill: Less Than 3 Seconds Extremity: Normal Inspection, Non Tender, No Pedal Edema Neurologic/Psychiatric: Alert, Oriented x3, Normal Mood/Affect Skin: Normal Color, Warm/Dry Results Lab Laboratory Tests 06/09/21 19:36 06/10/21 04:50 06/11/21 04:10 Assessment/Plan Assessment/Plan (Tele-ICU Physician , Progress Note ) Available chart/ vitals / labs / Images reviewed Video assessment done using teleICU camera, rest of exam as per RN Discussed with RN , EXAM PER RN Events overnight : Afebrile FiO2 - I/O = Drips: precedex Pressors: , hemodynamically stable Consultants: Hospital course: 06/09- ARF , covid, 8lNC 06/11 - BIPAP 03/06 100% A/P AHRF / ARDS due to severe COVID19 -BIPAP 03/06 100% RR 50 - will try to increase pressures , but VERY ISAURA RISK FOR INTUBATION -prone position if able - conservative fluid strategy (aim for even or negative fluid balance [id number]-Zffobpzscad-4/COVID-19 PNA ( DX 06/03 unvaccinted --Dexamethasone --s/p Pwprdewalqt80/ 23 , ( Acyclovir for HSV/VZV prophylaxis after Tocil izumab- 30 days 400 po bid ) -Hypercoagulable state , DDIMER= 0/96 on -> lovenox ppx dose , follow D dimer Monitor for superimposed bact PNA -PCT negative , OFF abx Hyperglycemia - ISS , close f/up on steroids Lines : PICC 06/11 (Central Line Necessity Reviewed) Monteiro: OG: Nutrition: Analgesia: Anxiety/ delirium precedex VTE Prophylaxis: scar 40 Stress Ulcer Prophylaxis: Glycemic Control: Plans in collaboration with bedside consultants and IM MDs. Discussed with RN to reach out if any questions or concerns A total of 33 minutes of critical care time was devoted to this patient today, required to treat and/or prevent further deterioration of critical care condition ( as above) . CARLOS VYAS MD Jun 11, 2021 13:39
[2021-06-11 14:21] VITALS: BP 131/77
--- NOTE | 2021-06-11 14:40 | Diagnostic Imaging Report ---
INDICATION: Post-PICC line placement, hypoxia, COVID positive. EXAMINATION: Chest 06/11/2021 COMPARISON: 06/09/2021 FINDINGS: There has been marked interval worsening in appearance of the lungs with increasing diffuse bilateral infiltrates. The heart is prominent, pulmonary vasculature appears congested. There is no pneumothorax. There are no effusions. Tip of the PICC line in the proximal SVC. IMPRESSION: 1. Worsening diffuse infiltrates with pulmonary vascular congestion. 2. PICC line tip in the SVC. Dictated by: Dictated on workstation # [id number]
[2021-06-11] MEDS ORDERED: morphine INJ 10 MG/ML 1ML (SYR OR VIAL) IVP STA (17:01)
[2021-06-11] MEDS ORDERED: morphine INJ 4 MG/ML 1 ML (VIAL/SYRINGE) ONE (17:18)
--- NOTE | 2021-06-11 17:55 | Progress Note - Hospitalist ---
Subjective HPI/CC On Admission Date Seen by Provider: Jun 11, 2021 Time Seen by Provider: 09:30 Kathleen Barahona is a 31 year old female who presented with shortness of breath. She was diagnosed with COVID recently. She had been exposed to a couple family members with COVID. She is unvaccinated. She was at home when her found her with blue lips, face, and fingers. She has been having fevers. She has had a cough. She is not having nausea or vomiting. She has had diarrhea. She has a poor appetite. She does not have any known medical problems. She does not take any medications regularly. She does not smoke, drink alcohol, or use illicit drugs. Subjective/Events-last exam She is wearing BiPAP. She was very short of breath before putting it on. She is sleepy. She denies pain. Focused Exam Lactate Level 06/09/21 19:36: Lactic Acid Level 1.04 Objective Exam Vital Signs Vital Signs Date Time Temp Pulse Resp B/P (MAP) Pulse Ox O2 Delivery O2 Flow Rate FiO2 06/11/21 16:00 69 16 111/101 90 NIV Bilevel 100.00 06/11/21 15:58 35.0 06/11/21 04:14 100 Capillary Refill : Less Than 3 Seconds General Appearance: Moderate Distress (tachypnea), Obese Respiratory: Decreased Breath Sounds, Respiratory Distress (tachypnea) Cardiovascular: Regular Rate, Rhythm, No Murmur Gastrointestinal: Normal Bowel Sounds, Soft Extremity: Normal Inspection, No Pedal Edema Neurologic/Psychiatric: Alert, Depressed Affect Skin: Normal Color, Warm/Dry Results/Procedures Lab Laboratory Tests 06/11/21 04:10 Patient resulted labs reviewed. Imaging: Reviewed Imaging Report Assessment/Plan Assessment and Plan Assess & Plan/Chief Complaint Acute respiratory distress syndrome due to COVID-19 Lymphopenia associated with COVID-19 Elevated d-dimer Elevated CRP Morbid obesity COVID+, unvaccinated Decadron s/p Actemra 06/10 Ddimer mildly elevated, trend Prophylactic Lovenox Procal normal, no antibiotics at this time Requiring max Vapotherm/BiPAP support High risk for intubation TeleICU following Critical Care Critically Ill Patient Diagnosis/Problems Diagnosis/Problems (1) Acute respiratory distress syndrome (ARDS) due to COVID-19 virus Status: Acute (2) Acute respiratory failure due to COVID-19 Status: Acute (3) Elevated d-dimer Status: Acute (4) Elevated C-reactive protein Status: Acute (5) Lymphopenia associated with COVID-19 Status: Acute (6) Morbid obesity Status: Chronic EYAD HINKLE MD Jun 11, 2021 17:55
[2021-06-11] MEDS: LACTATED RINGERS 1,000 ML IV SCH (18:43)
[2021-06-11] MEDS ORDERED: PROPOFOL DRIP (ICU) 100 ML IV ONE (18:50)
[2021-06-11] MEDS: PROPOFOL DRIP (ICU) 100 ML IV SCH ×3 (19:12→22:17)
--- NOTE | 2021-06-11 19:46 | Procedure/Intervention Note ---
Procedure Note Preoperative Date of Service: Jun 11, 2021 Time of Procedure: 19:00 Vital Signs Date Time Temp Pulse Resp B/P (MAP) Pulse Ox O2 Delivery O2 Flow Rate FiO2 06/11/21 18:54 66 50 90 100.00 06/11/21 18:00 141/92 NIV Bilevel 06/11/21 15:58 35.0 06/11/21 04:14 100 Indication Respiratory failure secondary to COVID-19 with hypoxemia, 35 to 40 breaths/min on BiPAP, perioral cyanosis Risk/Time Out Risk and benefits explained to patient or legal guardian, verbal and written consent given. Time out performed, verified correct patient, correct procedure, correct site, and consent documented. Technique Positioned and preoxygenated in the usual fashion using Ambi mask. Etomidate 40 mg and rocuronium 50 mg were given IV. When the patient was sedated we put a towel roll behind her back and her daughter up to about 80% FiO2 and using glide scope, video laryngoscopy 3 Santiago we were able to place a 7.5 ET tube at 21 at the teeth with good visualization of the entire vocal cords. Ambu bag into the 90s and put her on a ventilator at 480 tidal volume, 20 respiratory rate, PEEP of 15, FiO2 100% and her oxygen sats were 92 to 93% when I left the room. eICU was on the case. Estimated Blood Loss Less than 1 mL: Yes Complications Patient desaturated down to the mid 70s after sedation was given. We are unable to bag her up to about 80 to 82% before we decide to make an attempt to intubate as the patient was having some frothy blood-tinged fluid coming out from her nasopharyngeal airway and there was some concern we may be insufflating her stom ach given her body habitus and therefore putting her at higher risk for aspiration. We suctioned a very small amount of thin loose secretions prior to her first attempt at intubation and on videoendoscope there did not appear to be any significant aspiration. We suctioned her afterwards and did not get anything back up from the lungs so the risk for aspiration seems to be minimal at this time. Called nursing staff and discussed the findings on chest x-ray of good position of ET tube 3 to 4 cm above the vaughn. Lung hahn look like advanced ARDS/Covid pneumonia. KERRY DICKENS Jun 11, 2021 19:46
--- NOTE | 2021-06-11 19:46 | Diagnostic Imaging Report ---
EXAMINATION: Chest radiograph, portable AP view. DATE: 06/11/2021 7:40 PM. INDICATION: 31-year-old female, intubation. Covid positive. Shortness of breath. COMPARISON: June 11, 2021 at 1423 hours. FINDINGS: There is a newly placed endotracheal tube which is approximately 5 cm above the vaughn. The nasogastric tube extends to the inferior margin of the included [id number]. There are wires and leads overlying the patient which do limit the study. There is a right-sided PICC line overlying the mid SVC. Heart size and mediastinal contours are unchanged. There is no identified pneumothorax. There is extensive multifocal bilateral lung consolidation which is essentially unchanged. IMPRESSION: 1. Lines and tubes as above without complication. 2. Grossly unchanged extensive multifocal bilateral lung consolidation. Dictated by: Dictated on workstation # [id number]
[2021-06-11 20:55] LABS: ABG BASE EXCESS 1.2 MMOL/L (-2.5-2.5); ABG OXYGEN SATURATION 95 % (94-100); ABG PCO2 41 MMHG (35-45); ABG PH 7.41 (7.37-7.43); ABG PO2 73 MMHG (79-93); ABG TCO2 26.7 MMOL/L (21.0-31.0)
[2021-06-11 20:59] LABS: ALLENS TEST YES-POS; INSPIRED O2 100%; PATIENT TEMP 36.8; VENTILATOR YES
[2021-06-12] MEDS: RT-ALBUTEROL HFA 8.5 GM INHALER IH SCH ×6 (01:14→21:38)
[2021-06-12] MEDS ORDERED: fentaNYL DRIP PRE-MIX 250 ML IV ONE (01:35)
[2021-06-12] MEDS: inSUlin ASPART (NovoLOG) 1 UNIT/0.01 ML (CHARGE PER UNIT) SC SCH ×5 (01:44→23:22)
[2021-06-12] MEDS: fentaNYL DRIP PRE-MIX 250 ML IV SCH ×4 (01:44→20:47)
[2021-06-12] MEDS: DexMEDEtomidine 250 ML DRIP 250 ML IV SCH ×2 (02:06→16:37)
[2021-06-12] MEDS: PROPOFOL DRIP (ICU) 100 ML IV SCH ×8 (02:56→19:51)
[2021-06-12 05:01] LABS: ABG BASE EXCESS 2.7 MMOL/L (-2.5-2.5); ABG OXYGEN SATURATION 94 % (94-100); ABG PCO2 42 MMHG (35-45); ABG PH 7.42 (7.37-7.43); ABG PO2 74 MMHG (79-93); ABG TCO2 28.1 MMOL/L (21.0-31.0)
[2021-06-12 05:13] LABS: ALLENS TEST YES-POS; INSPIRED O2 75%; VENTILATOR YES
[2021-06-12 05:14] LABS: PATIENT TEMP 36.8
[2021-06-12 05:25] LABS: BASOPHILS % (AUTO) 0 % (0-10); EOSINOPHILS % (AUTO) 0 % (0-10); HEMATOCRIT 33 % (35-52); HEMOGLOBIN 9.9 g/dL (11.5-16.0); LYMPHOCYTES # (AUTO) 1.6 10^3/uL (1.0-4.0); LYMPHOCYTES % (AUTO) 21 % (12-44); MEAN CORPUSCULAR HEMOGLOBIN 22 pg (25-34); MEAN CORPUSCULAR HGB CONC 30 g/dL (32-36); MEAN CORPUSCULAR VOLUME 73 fL (80-99); MEAN PLATELET VOLUME 10.9 fL (9.0-12.2); MONOCYTES # (AUTO) 0.3 10^3/uL (0.0-1.0); MONOCYTES % (AUTO) 3 % (0-12); NEUTROPHILS # (AUTO) 5.6 10^3/uL (1.8-7.8); NEUTROPHILS % (AUTO) 74 % (42-75); PLATELET COUNT 319 10^3/uL (130-400); WHITE BLOOD COUNT 7.6 10^3/uL (4.3-11.0)
[2021-06-12 06:06] LABS: ALBUMIN 3.3 GM/DL (3.2-4.5); POTASSIUM 4.3 MMOL/L (3.6-5.0)
[2021-06-12 06:07] LABS: CALCIUM 8.2 MG/DL (8.5-10.1)
[2021-06-12 06:08] LABS: TOTAL PROTEIN 7.3 GM/DL (6.4-8.2)
[2021-06-12 06:10] LABS: BILIRUBIN,TOTAL 0.4 MG/DL (0.1-1.0)
[2021-06-12 06:11] LABS: PHOSPHORUS 4.7 MG/DL (2.3-4.7)
[2021-06-12 06:12] LABS: CREATININE SERUM 0.71 MG/DL (0.60-1.30)
[2021-06-12 06:15] LABS: MAGNESIUM 2.3 MG/DL (1.6-2.4)
[2021-06-12] MEDS: MAGNESIUM 1 GM/100 ML IVPB 100 ML IV SCH (06:18)
[2021-06-12] MEDS: POTASSIUM CL 10MEQ/50ML IVPB 50 ML IV SCH (06:18)
[2021-06-12] MEDS: KCL 20 MEQ TAB (K-DUR) PO SCH (06:18)
--- NOTE | 2021-06-12 07:23 | Diagnostic Imaging Report ---
INDICATION: Intubated, dyspnea COMPARISON: 06/11/2021 TECHNIQUE: Single frontal radiograph of the chest dated 06/12/2021. FINDINGS: Endotracheal tube, enteric catheter, and right-sided PICC line are again identified. The cardiac silhouette is enlarged, though stable. Extensive bilateral pulmonary opacities are again identified, very minimally improved within the left lung base. No pneumothorax. Osseous structures appear stable. IMPRESSION: Extensive multifocal pulmonary opacities, minimally improved within the left lung base. Unchanged lines and tubes. Dictated by: Dictated on workstation # [id number]
[2021-06-12] MEDS: ACYCLOVIR 400 MG TABLET (ZOVIRAX) PO SCH ×2 (09:00→19:50)
[2021-06-12] MEDS: ENOXAPARIN 40 MG/0.4 ML (LOVENOX) SYR SC SCH ×2 (09:00→19:50)
[2021-06-12] MEDS: BENZONATATE 100 MG (TESSALON) CAPSULE PO SCH ×4 (09:00→20:50)
[2021-06-12] MEDS: FAMOTIDINE 20MG/2ML IV (PEPCID) IVP SCH (09:00)
[2021-06-12] MEDS: guaiFENesin (MUCINEX) 600 MG TAB PO SCH ×2 (09:00→19:50)
[2021-06-12] MEDS ORDERED: ROCURONIUM 10 MG/ML 5 ML SYRINGE IV ONE (10:04)
[2021-06-12] MEDS ORDERED: ETOMIDATE IV SOLN 20 MG/10 ML VIAL IV ONE (10:04)
[2021-06-12] MEDS ORDERED: fentaNYL INJ 100 MCG/2 ML AMP IV ONE (10:04)
[2021-06-12] MEDS ORDERED: MIDAZOLAM 5 MG/5 ML (VERSED) VIAL INJ ONE (10:04)
[2021-06-12] MEDS: UMECLIDINIUM BROMIDE (INCRUSE ELLIPTA) 7'S IH SCH (10:17)
[2021-06-12 10:18] VITALS: BP 107/64
[2021-06-12] MEDS: LORazepam INJ 2 MG/ML (ATIVAN) VIAL IVP PRN (11:39)
--- NOTE | 2021-06-12 13:18 | Tele-ICU Progress Note ---
Subjective Date Seen by a Provider: Jun 12, 2021 Time Seen by a Provider: 13:18 Sepsis Event Evaluation Height, Weight, BMI Height: '" Weight: lbs. oz. kg; 44.44 BMI Method: Focused Exam Lactate Level 06/09/21 19:36: Lactic Acid Level 1.04 Exam Exam Patient acknowledged, consented, and participated in this virtual visit which was conducted using real time audio/video Vital Signs Date Time Temp Pulse Resp B/P (MAP) Pulse Ox O2 Delivery O2 Flow Rate FiO2 06/12/21 13:00 59 27 125/73 96 Mechanical Ventilator 75.00 06/12/21 12:50 61 06/12/21 12:00 59 27 124/77 95 Mechanical Ventilator 75.00 06/12/21 11:40 59 06/12/21 11:40 116 06/12/21 11:12 36.8 06/12/21 11:00 58 28 111/69 98 Mechanical Ventilator 75.00 06/12/21 10:18 59 28 98 75 06/12/21 10:00 61 31 104/69 94 Mechanical Ventilator 75.00 06/12/21 09:00 55 31 118/75 94 Mechanical Ventilator 75.00 06/12/21 08:00 57 118 27/95 78 Mechanical Ventilator 75.00 06/12/21 07:38 36.7 56 26 119/79 95 Mechanical Ventilator 75.00 06/12/21 07:00 56 121 121/76 76 Mechanical Ventilator 75.00 06/12/21 07:00 57 06/12/21 06:58 55 118/81 06/12/21 06:57 55 118/81 06/12/21 06:02 54 28 94 75 06/12/21 06:00 55 16 121/80 94 Mechanical Ventilator 75.00 06/12/21 05:07 73 34 86 06/12/21 05:00 61 33 124/80 92 Mechanical Ventilator 75.00 06/12/21 04:00 51 27 127/84 96 Mechanical Ventilator 75.00 06/12/21 04:00 95 Mechanical Ventilator 75 06/12/21 03:09 Mechanical Ventilator 75.00 06/12/21 03:00 51 28 134/84 96 Mechanical Ventilator 80.00 06/12/21 02:58 51 132/88 06/12/21 02:56 50 132/88 06/12/21 02:06 53 136/92 12/25/21 02:00 53 28 132/88 96 Mechanical Ventilator 80.00 06/12/21 01:14 60 34 94 75 06/12/21 01:00 61 31 121/80 97 Mechanical Ventilator 80.00 06/12/21 01:00 60 06/12/21 00:00 56 28 115/75 96 Mechanical Ventilator 80.00 06/12/21 00:00 97 Mechanical Ventilator 80 06/11/21 23:00 57 28 125/79 96 Mechanical Ventilator 80.00 06/11/21 22:19 60 28 95 80 06/11/21 22:17 60 122/79 06/11/21 22:16 60 122/79 06/11/21 22:00 57 28 122/77 97 Mechanical Ventilator 80.00 06/11/21 21:00 57 28 126/77 96 Mechanical Ventilator 100.00 06/11/21 20:00 92 Mechanical Ventilator 100 06/11/21 20:00 61 27 124/76 92 Mechanical Ventilator 100.00 06/11/21 19:12 78 06/11/21 19:11 63 28 89 100 06/11/21 19:00 66 20 126/71 91 Mechanical Ventilator 100.00 06/11/21 19:00 80 06/11/21 18:54 66 50 90 100.00 06/11/21 18:42 68 06/11/21 18:00 61 20 141/92 89 NIV Bilevel 100.00 06/11/21 17:00 69 136/92 93 NIV Bilevel 100.00 06/11/21 16:00 87 NIV Bilevel 100 06/11/21 16:00 69 16 111/101 90 NIV Bilevel 100.00 06/11/21 15:58 35.0 06/11/21 15:00 69 41 132/88 89 NIV Bilevel 100.00 06/11/21 14:21 73 54 91 100.00 06/11/21 14:00 64 131/77 90 NIV Bilevel 100.00 I & O 06/12/21 07:00 Intake Total 750 ml Output Total 1125 ml Balance -375 ml Height & Weight Height: '" Weight: lbs. oz. kg; 44.44 BMI Method: General Appearance: Moderate Distress (tachypnea), Obese HEENT: PERRL/EOMI, Pharynx Normal Neck: Normal Inspection, Supple Respiratory: Decreased Breath Sounds, Respiratory Distress (tachypnea) Cardiovascular: Regular Rate, Rhythm, No Murmur Capillary Refill: Less Than 3 Seconds Extremity: Normal Inspection, No Pedal Edema Neurologic/Psychiatric: Alert, Depressed Affect Skin: Normal Color, Warm/Dry Results Lab Laboratory Tests 06/11/21 04:10 06/12/21 05:00 Assessment/Plan Assessment/Plan (Tele-ICU Physician , Progress Note ) Available chart/ vitals / labs / Images reviewed Video assessment done using teleICU camera, rest of exam as per RN Discussed with RN , EXAM PER RN Events overnight : Afebrile FiO2 - I/O = Drips: Pressors: , hemodynamically stable Sedation gtt: ( RASS ) VENT SETTINGS and ABG reviewed Not candidate for SBT today REVIEWED Cardiovascular Stability / Sedation Score / FI02/PEEP / ABG / CXR Consultants: Hospital course: 06/09- ARF , covid, 8lNC 06/11 - BIPAP 03/06 100% - INTUBATED 06/12 AC PEEP 18, 75 % rr 28 tv 400 PAP 40 INTUBATED -AC PEEP 18, 75 % rr 28 tv 400 PAP 40 A/P AHRF / ARDS due to severe COVID19 INTUBATED -AC PEEP 18, 75 % rr 28 tv 400 PAP 40 - conservative fluid strategy (aim for even or negative fluid balance keep sedated , advance ett 2 cm -prone [id number]-Yhbgltahbvz-4/COVID-19 PNA ( DX 06/03 unvaccinted --Dexamethasone --s/p Fdhrjttuzzt34/ 23 , ( Acyclovir for HSV/VZV prophylaxis after Tocilizumab- 30 days 400 po bid ) -Hypercoagulable state , DDIMER= 0/96 on -> lovenox ppx dose , follow D dimer Monitor for superimposed bact PNA -PCT negative , OFF abx Hyperglycemia - ISS , close f/up on steroids Lines : PICC 06/11 (Central Line Necessity Reviewed) Monteiro: + OG: Nutrition: TF trophic Analgesia: Anxiety/ delirium precedex VTE Prophylaxis: scar 40 Stress Ulcer Prophylaxis: pepcid Glycemic Control: Plans in collaboration with bedside consultants and IM MDs. Discussed with RN to reach out if any questions or concerns A total of 33 minutes of critical care time was devoted to this patient today, required to treat and/or prevent further deterioration of critical care condition ( as above) . CARLOS VYAS MD Jun 12, 2021 13:18
[2021-06-12 14:02] VITALS: BP 130/80
--- NOTE | 2021-06-12 18:28 | Progress Note - Hospitalist ---
Subjective HPI/CC On Admission Date Seen by Provider: Jun 12, 2021 Time Seen by Provider: 09:05 Kathleen Barahona is a 31 year old female who presented with shortness of breath. She was diagnosed with COVID recently. She had been exposed to a couple family members with COVID. She is unvaccinated. She was at home when her found her with blue lips, face, and fingers. She has been having fevers. She has had a cough. She is not having nausea or vomiting. She has had diarrhea. She has a poor appetite. She does not have any known medical problems. She does not take any medications regularly. She does not smoke, drink alcohol, or use illicit drugs. Subjective/Events-last exam She is intubated and sedated. Focused Exam Lactate Level 06/09/21 19:36: Lactic Acid Level 1.04 Objective Exam Vital Signs Vital Signs Date Time Temp Pulse Resp B/P (MAP) Pulse Ox O2 Delivery O2 Flow Rate FiO2 06/12/21 18:00 51 27 141/86 96 Mechanical Ventilator 75.00 06/12/21 15:25 36.9 06/12/21 14:02 75 Capillary Refill : Less Than 3 Seconds General Appearance: No Apparent Distress, Obese, Other (intubated and sedated) Respiratory: Lungs Clear, No Respiratory Distress, Other (intubated and mechanically ventilated) Cardiovascular: Regular Rate, Rhythm, No Edema, No Murmur Gastrointestinal: Normal Bowel Sounds, Non Tender, Soft Extremity: Normal Inspection, Non Tender, No Pedal Edema Neurologic/Psychiatric: Other (sedated) Skin: Normal Color, Warm/Dry Results/Procedures Lab Laboratory Tests 06/12/21 05:00 Patient resulted labs reviewed. Imaging: Reviewed Imaging Report Assessment/Plan Assessment and Plan Assess & Plan/Chief Complaint Acute respiratory distress syndrome due to COVID-19 Lymphopenia associated with COVID-19 Elevated d-dimer Elevated CRP Morbid obesity COVID+, unvaccinated Intubated 06/11 Decadron s/p Actemra 06/10 Ddimer mildly elevated, trend Prophylactic Lovenox Procal normal, no antibiotics at this time TeleICU following Critical Care Critically Ill Patient Diagnosis/Problems Diagnosis/Problems (1) Acute respiratory distress syndrome (ARDS) due to COVID-19 virus Status: Acute (2) Acute respiratory failure due to COVID-19 Status: Acute (3) Elevated d-dimer Status: Acute (4) Elevated C-reactive protein Status: Acute (5) Lymphopenia associated with COVID-19 Status: Acute (6) Morbid obesity Status: Chronic EYAD HINKLE MD Jun 12, 2021 18:28
[2021-06-12 18:31] VITALS: BP 130/80
[2021-06-12 21:38] VITALS: BP 140/85
--- NOTE | 2021-06-13 00:16 | Tele-ICU Progress Note ---
Progress Note Patient self extubted. Untubated about 30 hours ago for hypoxia, no hypercapnia at this time. With bag mask ventilation, SpO2 93%. Patient is lethargic but responding, following commands and gesturing with hands. Sedation already off. Will give trial of BiPap. Focused Exam Height, Weight, BMI Height: '" Weight: lbs. oz. kg; 44.44 BMI Method: BERTRAND AMBRIZ MD Jun 13, 2021 00:16
[2021-06-13] MEDS: DexMEDEtomidine 250 ML DRIP 250 ML IV SCH ×4 (01:51→21:40)
[2021-06-13] MEDS: RT-ALBUTEROL HFA 8.5 GM INHALER IH SCH ×5 (02:43→22:30)
[2021-06-13 05:02] LABS: ABG BASE EXCESS 2.7 MMOL/L (-2.5-2.5); ABG OXYGEN SATURATION 93 % (94-100); ABG PCO2 43 MMHG (35-45); ABG PH 7.41 (7.37-7.43); ABG PO2 73 MMHG (79-93); ABG TCO2 28.5 MMOL/L (21.0-31.0)
[2021-06-13 05:03] LABS: ALLENS TEST YES-POS; INSPIRED O2 85%; PATIENT TEMP 36.3; VENTILATOR NO
[2021-06-13 05:05] LABS: BASOPHILS % (AUTO) 0 % (0-10); EOSINOPHILS % (AUTO) 0 % (0-10); HEMATOCRIT 33 % (35-52); HEMOGLOBIN 9.9 g/dL (11.5-16.0); LYMPHOCYTES # (AUTO) 2.3 10^3/uL (1.0-4.0); LYMPHOCYTES % (AUTO) 18 % (12-44); MEAN CORPUSCULAR HEMOGLOBIN 22 pg (25-34); MEAN CORPUSCULAR HGB CONC 30 g/dL (32-36); MEAN CORPUSCULAR VOLUME 74 fL (80-99); MONOCYTES # (AUTO) 0.2 10^3/uL (0.0-1.0); MONOCYTES % (AUTO) 2 % (0-12); NEUTROPHILS # (AUTO) 10.2 10^3/uL (1.8-7.8); NEUTROPHILS % (AUTO) 78 % (42-75); PLATELET COUNT 347 10^3/uL (130-400); WHITE BLOOD COUNT 12.9 10^3/uL (4.3-11.0)
[2021-06-13 05:34] LABS: ALBUMIN 3.2 GM/DL (3.2-4.5); POTASSIUM 3.9 MMOL/L (3.6-5.0)
[2021-06-13 05:35] LABS: CALCIUM 7.7 MG/DL (8.5-10.1)
[2021-06-13 05:36] LABS: TOTAL PROTEIN 7.3 GM/DL (6.4-8.2)
[2021-06-13 05:38] LABS: BILIRUBIN,TOTAL 0.5 MG/DL (0.1-1.0)
[2021-06-13 05:40] LABS: CREATININE SERUM 0.68 MG/DL (0.60-1.30); PHOSPHORUS 3.1 MG/DL (2.3-4.7)
[2021-06-13] MEDS: MAGNESIUM 1 GM/100 ML IVPB 100 ML IV SCH (05:42)
[2021-06-13] MEDS: inSUlin ASPART (NovoLOG) 1 UNIT/0.01 ML (CHARGE PER UNIT) SC SCH ×3 (05:42→18:03)
[2021-06-13] MEDS: POTASSIUM CL 10MEQ/50ML IVPB 50 ML IV SCH (05:42)
[2021-06-13] MEDS: KCL 20 MEQ TAB (K-DUR) PO SCH (05:42)
[2021-06-13 05:43] LABS: MAGNESIUM 2.1 MG/DL (1.6-2.4)
[2021-06-13 07:17] VITALS: BP 119/73
--- NOTE | 2021-06-13 07:26 | Diagnostic Imaging Report ---
EXAMINATION: Chest 1 view HISTORY: Intubation COMPARISON: 06/12/2021. FINDINGS: Heart size and pulmonary vasculature are stable. Increasing patchy interstitial airspace opacities seen throughout both lungs. Possible small left pleural effusion. No pneumothorax. Right-sided PICC line is unchanged. Interval removal of the endotracheal tube and enteric catheter. The osseous structures are intact. IMPRESSION: 1. Increasing patchy interstitial and airspace opacities throughout both lungs. 2. Interval removal of the endotracheal tube and enteric catheter. Dictated by: Dictated on workstation # [id number]
[2021-06-13] MEDS: FAMOTIDINE 20MG/2ML IV (PEPCID) IVP SCH (08:45)
[2021-06-13] MEDS: guaiFENesin (MUCINEX) 600 MG TAB PO SCH ×2 (08:45→19:37)
[2021-06-13] MEDS: ACYCLOVIR 400 MG TABLET (ZOVIRAX) PO SCH ×2 (08:46→19:37)
[2021-06-13] MEDS: ENOXAPARIN 40 MG/0.4 ML (LOVENOX) SYR SC SCH ×2 (08:46→19:37)
[2021-06-13] MEDS: BENZONATATE 100 MG (TESSALON) CAPSULE PO SCH ×4 (08:46→19:28)
[2021-06-13] MEDS ORDERED: LIDOCAINE 1% INJ 20 ML 20 ML VIAL INJ SCH (09:00)
[2021-06-13] MEDS ORDERED: cefTRIAXone 1,000 MG VIAL IM SCH (09:00)
--- NOTE | 2021-06-13 09:51 | Tele-ICU Progress Note ---
Subjective Date Seen by a Provider: Jun 13, 2021 Time Seen by a Provider: 09:51 Sepsis Event Evaluation Height, Weight, BMI Height: '" Weight: lbs. oz. kg; 44.44 BMI Method: Exam Exam Patient acknowledged, consented, and participated in this virtual visit which was conducted using real time audio/video Vital Signs Date Time Temp Pulse Resp B/P (MAP) Pulse Ox O2 Delivery O2 Flow Rate FiO2 06/13/21 09:00 74 112/67 90 NIV Bilevel 85.00 06/13/21 08:00 76 116/74 90 NIV Bilevel 85.00 06/13/21 07:45 37.0 06/13/21 07:17 73 47 91 85.00 76 06/13/21 07:00 75 06/13/21 07:00 76 45 119/73 90 NIV Bilevel 85.00 06/13/21 06:00 80 45 119/76 93 NIV Bilevel 85.00 06/13/21 05:00 73 49 130/82 91 NIV Bilevel 85.00 06/13/21 04:42 36.3 06/13/21 04:00 NIV Bilevel 85 06/13/21 04:00 63 44 92 NIV Bilevel 85.00 06/13/21 03:00 58 28 91 NIV Bilevel 85.00 06/13/21 02:43 73 42 92 85.00 06/13/21 02:00 52 28 91 NIV Bilevel 85.00 06/13/21 01:51 141/93 06/13/21 01:00 61 24 133/85 94 NIV Bilevel 85.00 06/13/21 01:00 54 06/13/21 00:30 68 43 90 85.00 06/13/21 00:25 92 NIV Bilevel 85.00 06/13/21 00:00 67 26 129/78 92 Mechanical Ventilator 70.00 06/13/21 00:00 Mechanical Ventilator 70 06/13/21 00:00 36.6 06/12/21 23:00 55 27 140/85 95 Mechanical Ventilator 70.00 06/12/21 22:00 53 28 142/83 95 Mechanical Ventilator 70.00 06/12/21 21:38 52 28 96 70 06/12/21 21:00 52 28 141/87 96 Mechanical Ventilator 70.00 06/12/21 20:00 53 27 140/84 95 Mechanical Ventilator 70.00 06/12/21 20:00 94 Mechanical Ventilator 70 06/12/21 19:51 140/82 06/12/21 19:51 140/82 06/12/21 19:45 37.4 Mechanical Ventilator 70.00 06/12/21 19:00 51 28 140/82 94 Mechanical Ventilator 70.00 06/12/21 19:00 60 06/12/21 18:31 51 28 96 70 06/12/21 18:00 51 27 141/86 96 Mechanical Ventilator 75.00 06/12/21 17:00 52 28 138/85 94 Mechanical Ventilator 75.00 06/12/21 16:37 54 132/81 06/12/21 16:36 55 132/81 06/12/21 16:35 56 132/81 06/12/21 16:00 58 20 130/77 92 Mechanical Ventilator 75.00 06/12/21 16:00 95 Mechanical Ventilator 75 06/12/21 15:25 36.9 06/12/21 15:00 59 23 132/79 92 Mechanical Ventilator 75.00 06/12/21 14:02 59 28 95 75 06/12/21 14:00 58 27 130/80 93 Mechanical Ventilator 75.00 06/12/21 13:00 59 27 125/73 96 Mechanical Ventilator 75.00 06/12/21 12:50 61 06/12/21 12:00 59 27 124/77 95 Mechanical Ventilator 75.00 06/12/21 12:00 95 Mechanical Ventilator 75 06/12/21 11:40 59 06/12/21 11:40 116 06/12/21 11:12 36.8 06/12/21 11:00 58 28 111/69 98 Mechanical Ventilator 75.00 06/12/21 10:18 59 28 98 75 06/12/21 10:00 61 31 104/69 94 Mechanical Ventilator 75.00 I & O 06/13/21 07:00 Intake Total 1470 ml Output Total 1275 ml Balance 195 ml Height & Weight Height: '" Weight: lbs. oz. kg; 44.44 BMI Method: General Appearance: No Apparent Distress, Obese, Other (intubated and sedated) HEENT: PERRL/EOMI, Pharynx Normal Neck: Normal Inspection, Supple Respiratory: Lungs Clear, No Respiratory Distress, Other (intubated and mechanically ventilated) Cardiovascular: Regular Rate, Rhythm, No Edema, No Murmur Capillary Refill: Less Than 3 Seconds Extremity: Normal Inspection, Non Tender, No Pedal Edema Neurologic/Psychiatric: Other (sedated) Skin: Normal Color, Warm/Dry Results Lab Laboratory Tests 06/12/21 05:00 06/13/21 04:45 Assessment/Plan Assessment/Plan Available chart/ vitals / labs / Images reviewed Video assessment done using teleICU camera, rest of exam as per RN Discussed with RN , EXAM PER RN Events overnight : Afebrile FiO2 - I/O = Drips: Pressors: , hemodynamically stable Consultants: Hospital course: 06/09- ARF , covid, 8lNC 06/11 - BIPAP 03/06 100% - INTUBATED 06/12 AC PEEP 18, 75 % rr 28 tv 400 PAP 40 INTUBATED -AC PEEP 18, 75 % rr 28 tv 400 PAP 40 06/13 - SELF EXTUBATED - Bipap 03/04 85% - [id number] tv 560- MV 35L A/P AHRF / ARDS due to severe COVID19 INTUBATED 06/13 - SELF EXTUBATED - Bipap 03/04 85% - [id number] tv 560- MV 35L - occasional rr to > 60 - monitor closely - CXR WITH WORSENIGN OPACITIES - VERY HIGH RISK FOR RE-INTUBATION - conservative fluid strategy (aim for even or negative fluid balance -prone [id number]-3/COVID-19 PNA ( DX 06/03 unvaccinted --Dexamethasone --s/p [id number]/ 23 , ( Acyclovir for HSV/VZV prophylaxis after Tocilizumab- 30 days 400 po bid ) -Hypercoagulable state , DDIMER= 0/96 on -> lovenox ppx dose , D dimer is rising to 3 06/13 - will check LE for DVT More acidotic by bicarb on chem 7 , ph on abg acceptable - monitor Monitor for superimposed bact PNA - with dennazario LLL infitrate will add rocephin 06/13 Hyperglycemia - ISS , close f/up on steroids Lines : PICC 06/11 (Central Line Necessity Reviewed) Monteiro: + OG: Nutrition: TF trophic Analgesia: Anxiety/ delirium precedex VTE Prophylaxis: scar 40 Stress Ulcer Prophylaxis: pepcid Glycemic Control: Plans in collaboration with bedside consultants and IM MDs. Discussed with RN to reach out if any questions or concerns A total of 33 minutes of critical care time was devoted to this patient today, required to treat and/or prevent further deterioration of critical care condition ( as above) . CARLOS VYAS MD Jun 13, 2021 09:51
[2021-06-13] MEDS ORDERED: NS IV 1000 ML 1,000 ML ONE (09:56)
--- NOTE | 2021-06-13 10:35 | Anesthesia-Procedure Note ---
Procedures/Interventions Procedure Start/Stop/Diagnosis Date of Procedure: Jun 13, 2021 Start Time: 10:03 Stop Time: 10:25 Intubation RSI: Yes 100% pre-Ox, [id number]: Yes Intubation Method: orotracheal Videoscope used: Yes Grade View: 1 Medications: Propofol (200), Rocuronium (50 Post intubation), Succinylcholine (100), Versed (5 Post intubation) Mask Ventilation: positive Positive End Tide CO2: Yes Breath Sounds after Intubation: bilateral-equal ETT Securred @ (cm): 23 Intubated with ease: Yes Intubation Complications: no complications, O2 saturation decreased (92-59%) Post Intubation Xray-done: Yes (in progress) Care turned over to: IMAGE EDITOR's Arterial Line Arterial Line Catheter: 20G Type: Radial Location: Left Procedure: prepped, draped in sterile fashion, good wave-form was obtained, patient tolerated procedure well, no immediate complications, post procedure area cleaned, post procedure dressing applied VIKKI BOYCE CRNA Jun 13, 2021 10:35
[2021-06-13] MEDS ORDERED: LORazepam INJ 2 MG/ML (ATIVAN) VIAL IVP PRN (10:45)
[2021-06-13] MEDS: fentaNYL DRIP PRE-MIX 250 ML IV SCH ×4 (10:49→22:55)
[2021-06-13] MEDS: PROPOFOL DRIP (ICU) 100 ML IV SCH ×5 (10:49→23:47)
[2021-06-13] MEDS: MIDAZOLAM DRIP PRE-MIX 100 ML IV SCH ×2 (11:05→18:38)
--- NOTE | 2021-06-13 11:08 | Diagnostic Imaging Report ---
Indication: Respiratory distress. Compared with the study earlier this same date. An ET tube has been placed in good position mid thoracic trachea with significant improvements in bilateral lung expansion however severe 5 lobe airspace disease is once again noted. Right PICC line at the upper SVC stable. No demonstrated pneumothorax, we acknowledge relative sparing as the apical portion of the left upper lobe. Impression: Improved lung volumes and decreased density post intubation with symmetrical lung expansion, tube in good position. Severe 5 lobe airspace disease consistent with nonspecific pneumonia however redemonstrated. Dictated by: Dictated on workstation # [id number]
[2021-06-13 11:26] LABS: ABG BASE EXCESS 2.2 MMOL/L (-2.5-2.5); ABG OXYGEN SATURATION 79 % (94-100); ABG PCO2 50 MMHG (35-45); ABG PH 7.36 (7.37-7.43); ABG PO2 52 MMHG (79-93); ABG TCO2 28.8 MMOL/L (21.0-31.0)
[2021-06-13 11:27] LABS: ALLENS TEST ART LINE
[2021-06-13 11:28] LABS: INSPIRED O2 100%; PATIENT TEMP 36.5; VENTILATOR YES
[2021-06-13] MEDS ORDERED: ROCURONIUM 10 MG/ML 5 ML SYRINGE IV ONE ×2 (11:35→11:45)
--- NOTE | 2021-06-13 11:53 | Diagnostic Imaging Report ---
PROCEDURE: US Venous Lower Ext [place]. TECHNIQUE: Multiple real-time grayscale images were obtained over the lower extremities in various projections, bilaterally. Additional duplex Doppler and color Doppler images were also obtained. INDICATION: COVID patient with pain, elevated D-dimer. FINDINGS: Femoropopliteal deep venous system bilaterally showed normal color flow, normal compressibility and normal waveforms. IMPRESSION: Normal negative bilateral lower extremity venous Doppler and ultrasound. Dictated by: Dictated on workstation # [id number]
[2021-06-13] MEDS: ROCURONIUM 10 MG/ML 5 ML SYRINGE IV PRN (12:00)
[2021-06-13] MEDS: LORazepam INJ 2 MG/ML (ATIVAN) VIAL IVP PRN ×2 (12:00→16:12)
[2021-06-13] MEDS: cefTRIAXone 1 GM PRE-MIX 50 ML IV SCH (12:57)
[2021-06-13 14:55] VITALS: BP 133/75
[2021-06-13] MEDS: UMECLIDINIUM BROMIDE (INCRUSE ELLIPTA) 7'S IH SCH (14:55)
--- NOTE | 2021-06-13 23:45 | Progress Note - Hospitalist ---
Subjective HPI/CC On Admission Date Seen by Provider: Jun 13, 2021 Time Seen by Provider: 09:30 Kathleen Barahona is a 31 year old female who presented with shortness of breath. She was diagnosed with COVID recently. She had been exposed to a couple family members with COVID. She is unvaccinated. She was at home when her found her with blue lips, face, and fingers. She has been having fevers. She has had a cough. She is not having nausea or vomiting. She has had diarrhea. She has a poor appetite. She does not have any known medical problems. She does not take any medications regularly. She does not smoke, drink alcohol, or use illicit drugs. Subjective/Events-last exam She is awake but lethargic. She self extubated overnight and is back on BiPAP. Objective Exam Vital Signs Vital Signs Date Time Temp Pulse Resp B/P (MAP) Pulse Ox O2 Delivery O2 Flow Rate FiO2 06/13/21 23:36 80 06/13/21 22:35 Mechanical Ventilator 80.00 06/13/21 22:31 85 36 96 06/13/21 19:56 38.0 06/13/21 19:35 Capillary Refill : Less Than 3 Seconds General Appearance: Obese, Severe Distress (tachypnea) Respiratory: Decreased Breath Sounds, Respiratory Distress, Other (tachypnea, on BiPAP) Cardiovascular: Regular Rate, Rhythm, No Murmur Gastrointestinal: Normal Bowel Sounds, Soft Extremity: Normal Inspection, No Pedal Edema Neurologic/Psychiatric: Other (lethargic, uncooperative) Skin: Normal Color, Warm/Dry Results/Procedures Lab Laboratory Tests 06/13/21 04:45 Patient resulted labs reviewed. 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 Plan for re-intubation Continue Decadron s/p Actemra 06/10 Ddimer mildly elevated, trend Prophylactic Lovenox Sputum culture with Moraxella Started on Rocephin TeleICU following Critical Care Critically Ill Patient Diagnosis/Problems Diagnosis/Problems (1) Acute respiratory distress syndrome (ARDS) due to COVID-19 virus Status: Acute (2) Acute respiratory failure due to COVID-19 Status: Acute (3) Elevated d-dimer Status: Acute (4) Elevated C-reactive protein Status: Acute (5) Lymphopenia associated with COVID-19 Status: Acute (6) Morbid obesity Status: Chronic (7) Secondary bacterial pneumonia Status: Acute EYAD HINKLE MD Jun 13, 2021 23:45
[2021-06-14] MEDS: RT-ALBUTEROL HFA 8.5 GM INHALER IH SCH ×6 (02:43→23:18)
[2021-06-14] MEDS: ROCURONIUM 10 MG/ML 5 ML SYRINGE IV PRN (02:57)
[2021-06-14] MEDS: DexMEDEtomidine 250 ML DRIP 250 ML IV SCH ×4 (03:08→20:17)
[2021-06-14] MEDS: fentaNYL DRIP PRE-MIX 250 ML IV SCH ×6 (03:09→23:58)
[2021-06-14 04:21] LABS: BASOPHILS % (AUTO) 0 % (0-10); EOSINOPHILS # (AUTO) 0.1 10^3/uL (0.0-0.3); EOSINOPHILS % (AUTO) 1 % (0-10); HEMATOCRIT 31 % (35-52); HEMOGLOBIN 9.9 g/dL (11.5-16.0); LYMPHOCYTES # (AUTO) 2.5 10^3/uL (1.0-4.0); LYMPHOCYTES % (AUTO) 19 % (12-44); MEAN CORPUSCULAR HEMOGLOBIN 24 pg (25-34); MEAN CORPUSCULAR HGB CONC 32 g/dL (32-36); MEAN CORPUSCULAR VOLUME 76 fL (80-99); MEAN PLATELET VOLUME 9.8 fL (9.0-12.2); MONOCYTES # (AUTO) 0.3 10^3/uL (0.0-1.0); MONOCYTES % (AUTO) 3 % (0-12); NEUTROPHILS # (AUTO) 10.2 10^3/uL (1.8-7.8); NEUTROPHILS % (AUTO) 77 % (42-75); PLATELET COUNT 241 10^3/uL (130-400); WHITE BLOOD COUNT 13.4 10^3/uL (4.3-11.0)
[2021-06-14 04:30] LABS: ABG BASE EXCESS 3.3 MMOL/L (-2.5-2.5); ABG OXYGEN SATURATION 94 % (94-100); ABG PCO2 52 MMHG (35-45); ABG PH 7.36 (7.37-7.43); ABG PO2 77 MMHG (79-93); ALLENS TEST YES-POS; INSPIRED O2 100%; PATIENT TEMP 36.6; VENTILATOR YES
[2021-06-14 04:33] LABS: POTASSIUM 4.5 MMOL/L (3.6-5.0)
[2021-06-14 04:34] LABS: CALCIUM 7.4 MG/DL (8.5-10.1)
[2021-06-14] MEDS: PROPOFOL DRIP (ICU) 100 ML IV SCH ×5 (04:34→23:59)
[2021-06-14 04:36] LABS: TOTAL PROTEIN 7.4 GM/DL (6.4-8.2)
[2021-06-14] MEDS: MIDAZOLAM DRIP PRE-MIX 100 ML IV SCH ×3 (04:36→23:52)
[2021-06-14 04:37] LABS: BILIRUBIN,TOTAL 0.4 MG/DL (0.1-1.0)
[2021-06-14 04:39] LABS: CREATININE SERUM 0.93 MG/DL (0.60-1.30); PHOSPHORUS 2.8 MG/DL (2.3-4.7)
[2021-06-14 04:42] LABS: MAGNESIUM 2.1 MG/DL (1.6-2.4)
[2021-06-14] MEDS ORDERED: NOREPINEPHRINE 8 MG/250 ML 250 ML IV ONE (05:41)
[2021-06-14] MEDS: NOREPINEPHRINE 8 MG/250 ML 250 ML IV SCH ×5 (05:50→22:01)
[2021-06-14] MEDS: inSUlin ASPART (NovoLOG) 1 UNIT/0.01 ML (CHARGE PER UNIT) SC SCH ×5 (06:12→23:53)
[2021-06-14] MEDS: MAGNESIUM 1 GM/100 ML IVPB 100 ML IV SCH (06:12)
[2021-06-14] MEDS: KCL 20 MEQ TAB (K-DUR) PO SCH (06:12)
[2021-06-14] MEDS: POTASSIUM CL 10MEQ/50ML IVPB 50 ML IV SCH (06:12)
--- NOTE | 2021-06-14 06:56 | Diagnostic Imaging Report ---
EXAMINATION: Chest 1 view HISTORY: Respiratory distress. Intubated. COMPARISON: 06/13/2021. FINDINGS: Stable endotracheal tube, enteric tube, and right PICC. There are worsening consolidative opacities throughout the right lung with stable consolidative opacities throughout the left lung. There is relative sparing of the left apex. No large pleural effusion or pneumothorax. Stable cardiac silhouette. IMPRESSION: 1. Worsening consolidative opacities throughout the right lung with stable consolidative opacities throughout the left lung. Findings are concerning for worsening pneumonia or edema. Worsening ARDS can also have this appearance. Recommend continued close followup. 2. Stable support devices. Dictated by: Dictated on workstation # [id number]
--- NOTE | 2021-06-14 06:59 | Occ Therapy Progress Note ---
Therapy Progress Note OT orders received. Pt is currently intubated. OT to monitor pt's status and will initiate treatment when pt is medically stable and able to participate in skilled therapy. AZUL BRAY Jun 14, 2021 06:59
[2021-06-14] MEDS: UMECLIDINIUM BROMIDE (INCRUSE ELLIPTA) 7'S IH SCH (07:09)
[2021-06-14] MEDS: LORazepam INJ 2 MG/ML (ATIVAN) VIAL IVP PRN ×4 (07:54→18:36)
--- NOTE | 2021-06-14 07:56 | Physical Therapy Progress Note ---
Therapy Progress Note Patient currently sedated and intubated. PT will continue to monitor patient status. SHELL PAYNE PT Jun 14, 2021 07:56
[2021-06-14] MEDS: guaiFENesin (MUCINEX) 600 MG TAB PO SCH ×2 (09:34→21:35)
[2021-06-14] MEDS: cefTRIAXone 1 GM PRE-MIX 50 ML IV SCH (09:34)
[2021-06-14] MEDS: ACYCLOVIR 400 MG TABLET (ZOVIRAX) PO SCH ×2 (09:34→21:35)
[2021-06-14] MEDS: FAMOTIDINE 20MG/2ML IV (PEPCID) IVP SCH (09:34)
--- NOTE | 2021-06-14 10:32 | Tele-ICU Progress Note ---
Subjective Date Seen by a Provider: Jun 14, 2021 Time Seen by a Provider: 08:25 Subjective/Events-last exam This virtual visit was conducted using real time audio/video. Thank you for asking us to see this patient for respiratory insufficiency due to Covid pna. Recent events: Reintubated 06/13 for hypoxia/tachypnea following self extubation. PE: Morbidly obese. SBP 75. Levo increased. O2 sat 82% on 100/+18 HEENT: No obvious masses, adenopathy or JVD. Chest: clear to auscultation. CV: RRR S1 S2 No murmur or added sounds. Abd: Non-tender. Bowel sounds Y. : Unremarkable. 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 Grossly intact. No obvious focal findings. Extremities: edema. Capillary refill < 3 seconds. Skin: unremarkable. Results: Elevated WCC 13.4. Decreased Hb 9.9. B.35/52/77. CXR: B infilts. Available chart/ vitals / labs / images reviewed. Video assessment done using teleICU camera, rest of exam as per RN. A/P: Respiratory insufficiency: Increase PEEP to 20, paralyse and prone pt. Critical Care: critically ill patient. Cont. Albut., sedatives, Levo, abx, Acyclovir, Zenaida., Pepcid, SSI. Discussed with RN Lu. Asked RN to reach out to eICU if any questions or concerns later. Time spent with patient/coordination of care with other health professionals (mins):35 Sepsis Event Evaluation Height, Weight, BMI Height: '" Weight: lbs. oz. kg; 44.44 BMI Method: Focused Exam Lactate Level 06/14/21 04:10: Lactic Acid Level 1.65 Exam Exam Patient acknowledged, consented, and participated in this virtual visit which was conducted using real time audio/video Vital Signs Date Time Temp Pulse Resp B/P (MAP) Pulse Ox O2 Delivery O2 Flow Rate FiO2 06/14/21 10:06 134 95/54 06/14/21 10:06 134 95/54 06/14/21 09:26 140 107/59 06/14/21 09:17 131 59 85 100 06/14/21 07:45 37.3 06/14/21 07:04 87 39 90 100 06/14/21 06:31 89 06/14/21 06:00 89 19 104/34 86 Mechanical Ventilator 100.00 06/14/21 05:50 66/52 06/14/21 05:00 81 31 94/32 90 Mechanical Ventilator 100.00 06/14/21 04:36 79/36 06/14/21 04:34 79/36 06/14/21 04:34 79/36 06/14/21 04:28 100 06/14/21 04:28 80 06/14/21 04:00 36.6 06/14/21 04:00 83 32 91 Mechanical Ventilator 100.00 06/14/21 03:15 Mechanical Ventilator 100.00 06/14/21 03:08 102/85 06/14/21 03:00 86 28 93 Mechanical Ventilator 80.00 06/14/21 02:43 85 33 94 70 06/14/21 02:00 84 14 95 Mechanical Ventilator 80.00 06/14/21 01:00 84 12 96 Mechanical Ventilator 80.00 06/14/21 01:00 84 06/14/21 00:00 100 06/14/21 00:00 86 12 96 Mechanical Ventilator 80.00 06/13/21 23:47 126/81 06/13/21 23:47 116/83 06/13/21 23:36 80 06/13/21 23:00 86 19 97 Mechanical Ventilator 80.00 06/13/21 22:35 Mechanical Ventilator 80.00 06/13/21 22:31 85 36 96 80 06/13/21 22:00 84 22 96 Mechanical Ventilator 90.00 06/13/21 21:40 83 06/13/21 21:00 83 19 96 Mechanical Ventilator 90.00 06/13/21 20:29 100 06/13/21 20:13 100 06/13/21 20:00 83 23 96 Mechanical Ventilator 90.00 06/13/21 19:56 38.0 06/13/21 19:35 82 28 95 Mechanical Ventilator 90.00 06/13/21 19:00 82 27 96 Mechanical Ventilator 90.00 06/13/21 19:00 82 06/13/21 18:46 80 31 94 90 06/13/21 18:38 80 27 133/75 06/13/21 18:38 80 133/75 06/13/21 18:00 80 27 96 Mechanical Ventilator 100.00 06/13/21 17:00 80 27 96 Mechanical Ventilator 100.00 06/13/21 16:15 96 100 06/13/21 16:12 79 131/75 06/13/21 16:12 78 133/75 06/13/21 16:00 78 20 96 Mechanical Ventilator 100.00 06/13/21 15:47 37.4 06/13/21 15:00 77 29 96 Mechanical Ventilator 100.00 06/13/21 14:55 76 28 96 100 06/13/21 14:15 77 122/72 06/13/21 14:00 76 27 97 Mechanical Ventilator 100.00 06/13/21 13:00 77 30 98 Mechanical Ventilator 100.00 06/13/21 12:55 79 06/13/21 12:10 86 Mechanical Ventilator 100 06/13/21 12:00 80 27 96 Mechanical Ventilator 100.00 06/13/21 12:00 36.5 06/13/21 11:12 81 107/66 06/13/21 11:05 81 32 107/66 06/13/21 11:00 83 27 90 Mechanical Ventilator Automatic Cuff 06/13/21 10:49 82 112/61 I & O 06/14/21 07:00 Intake Total 60 ml Output Total 2025 ml Balance -1965 ml Height & Weight Height: '" Weight: lbs. oz. kg; 44.44 BMI Method: General Appearance: Obese, Severe Distress (tachypnea) HEENT: PERRL/EOMI, Pharynx Normal Neck: Normal Inspection, Supple Respiratory: Decreased Breath Sounds, Respiratory Distress, Other (tachypnea, on BiPAP) Cardiovascular: Regular Rate, Rhythm, No Murmur Capillary Refill: Less Than 3 Seconds Peripheral Pulses: 1+ Dorsalis Pedis (R), 1+ Left Dors-Pedis (L) (See free text) Extremity: Normal Inspection, No Pedal Edema Neurologic/Psychiatric: Other (lethargic, uncooperative) Skin: Normal Color, Warm/Dry Results Lab Laboratory Tests 06/13/21 04:45 06/14/21 04:10 Assessment/Plan Assessment/Plan See free text. Critical Care: Ventilator Management WILL BRAVO MD Jun 14, 2021 10:32
[2021-06-14] MEDS ORDERED: ROCURONIUM 10 MG/ML 5 ML SYRINGE IV ONE ×2 (10:48→11:00)
[2021-06-14] MEDS: CISATRACURIUM DRIP 250 ML IV SCH ×4 (10:50→23:53)
[2021-06-14] MEDS: ENOXAPARIN 300 MG/3 ML (LOVENOX) MULTI-DOSE VIAL SQ SCH ×2 (11:16→21:35)
[2021-06-14] MEDS: BENZONATATE 100 MG (TESSALON) CAPSULE PO SCH ×4 (13:29→21:25)
--- NOTE | 2021-06-14 18:29 | Progress Note - Hospitalist ---
Subjective HPI/CC On Admission Date Seen by Provider: Jun 14, 2021 Time Seen by Provider: 09:55 Kathleen Barahona is a 31 year old female who presented with shortness of breath. She was diagnosed with COVID recently. She had been exposed to a couple family members with COVID. She is unvaccinated. She was at home when her found her with blue lips, face, and fingers. She has been having fevers. She has had a cough. She is not having nausea or vomiting. She has had diarrhea. She has a poor appetite. She does not have any known medical problems. She does not take any medications regularly. She does not smoke, drink alcohol, or use illicit drugs. Subjective/Events-last exam She is intubated and sedated. She remains hypoxic. Focused Exam Lactate Level 06/14/21 04:10: Lactic Acid Level 1.65 Objective Exam Vital Signs Vital Signs Date Time Temp Pulse Resp B/P (MAP) Pulse Ox O2 Delivery O2 Flow Rate FiO2 06/14/21 17:00 115 29 109/52 89 Mechanical Ventilator 100.00 06/14/21 16:57 100 06/14/21 16:06 37.3 Capillary Refill : Less Than 3 Seconds General Appearance: Obese, Other (intubated and sedated) Respiratory: No Respiratory Distress, Decreased Breath Sounds, Other (intubated and mechanically ventilated) Cardiovascular: No Edema, No Murmur, Tachycardia Gastrointestinal: Normal Bowel Sounds, Soft Extremity: Normal Inspection, No Pedal Edema Neurologic/Psychiatric: Other (sedated) Skin: Normal Color, Cool Results/Procedures Lab Laboratory Tests 06/14/21 04:10 Patient resulted labs reviewed. 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 Continue Decadron s/p Actemra 06/10 Ddimer significantly elevated Transition to therapeutic Lovenox Sputum culture with Moraxella Continue Rocephin TeleICU following Consider paralytic Attempting transfer for ECMO Critical Care Ventilator Management Diagnosis/Problems Diagnosis/Problems (1) Acute respiratory distress syndrome (ARDS) due to COVID-19 virus Status: Acute (2) Acute respiratory failure due to COVID-19 Status: Acute (3) Elevated d-dimer Status: Acute (4) Elevated C-reactive protein Status: Acute (5) Lymphopenia associated with COVID-19 Status: Acute (6) Morbid obesity Status: Chronic (7) Secondary bacterial pneumonia Status: Acute (8) Hypercoagulable state associated with COVID-19 Status: Acute (9) Poor prognosis Status: Acute EYAD HINKLE MD Jun 14, 2021 18:29
[2021-06-14] MEDS: ACETAMINOPHEN 325 MG TABLET PO PRN ×2 (18:48→22:22)
[2021-06-14] MEDS ORDERED: ACETAMINOPHEN 650 MG SUPP (TYLENOL) ONE (18:51)
[2021-06-14] MEDS ORDERED: ACETAMINOPHEN 650 MG SUPP (TYLENOL) PR PRN (19:00)
[2021-06-15] MEDS: NOREPINEPHRINE 8 MG/250 ML 250 ML IV SCH (00:02)
[2021-06-15] MEDS: DexMEDEtomidine 250 ML DRIP 250 ML IV SCH (02:10)
[2021-06-15 02:16] VITALS: BP 109/47
[2021-06-15] MEDS: RT-ALBUTEROL HFA 8.5 GM INHALER IH SCH (02:16)
[2021-06-15] MEDS ORDERED: SODIUM BICARB 8.4% 50 MEQ/50 ML (ABBOTT) SYR ONE (04:43)
[2021-06-15] MEDS ORDERED: SODIUM BICARB 8.4% 50 MEQ/50 ML (ABBOTT) SYR INJ ONE (04:50)
[2021-06-15] MEDS ORDERED: DEXTROSE 50% 50 ML (IMS) SYR INJ ONE (04:50)
[2021-06-15] MEDS ORDERED: EPINEPHrine 0.1 MG/ML 10 ML (HOSPIRA) SYR IJ ONE (04:50)
[2021-06-15] MEDS ORDERED: CATHETER FLUSH 10 ML SYR IV ONE (04:50)
[2021-06-15] MEDS ORDERED: CALCIUM CHLORIDE 1 GM/10 ML (IMS) SYR INJ ONE (04:50)
--- NOTE | 2021-06-15 04:59 | Tele-ICU Progress Note ---
Subjective Date Seen by a Provider: Jun 15, 2021 Time Seen by a Provider: 04:58 Sepsis Event Evaluation Height, Weight, BMI Height: '" Weight: lbs. oz. kg; 44.44 BMI Method: Focused Exam Lactate Level 06/14/21 04:10: Lactic Acid Level 1.65 Exam Exam Patient acknowledged, consented, and participated in this virtual visit which was conducted using real time audio/video Vital Signs Date Time Temp Pulse Resp B/P (MAP) Pulse Ox O2 Delivery O2 Flow Rate FiO2 06/15/21 04:00 37.1 06/15/21 02:16 100 30 95 100 06/15/21 02:10 96 110/58 06/15/21 01:06 89 06/15/21 00:02 101 107/59 06/14/21 23:59 104 107/59 06/14/21 23:52 104 28 107/59 06/14/21 23:18 82 40 91 100 06/14/21 23:00 92 24 107/43 94 Mechanical Ventilator 100.00 06/14/21 22:52 39.2 06/14/21 22:22 39.4 06/14/21 22:21 39.4 06/14/21 22:01 80 110/64 06/14/21 22:00 82 23 109/39 94 Mechanical Ventilator 100.00 06/14/21 21:00 84 29 104/40 93 Mechanical Ventilator 100.00 06/14/21 20:17 90 112/50 06/14/21 20:00 100 06/14/21 20:00 91 Mechanical Ventilator 100 06/14/21 20:00 85 29 106/41 93 Mechanical Ventilator 100.00 06/14/21 20:00 35.0 06/14/21 19:25 37.6 06/14/21 19:08 82 40 91 100 06/14/21 19:00 85 30 113/38 90 Mechanical Ventilator 100.00 06/14/21 19:00 89 06/14/21 18:56 84 106/51 06/14/21 18:56 83 106/51 06/14/21 18:55 39.0 06/14/21 18:42 39.0 06/14/21 18:35 84 97/41 06/14/21 18:00 109 29 97/41 87 Mechanical Ventilator 100.00 06/14/21 17:00 115 29 109/52 89 Mechanical Ventilator 100.00 06/14/21 16:57 89 Mechanical Ventilator 100 06/14/21 16:57 100 06/14/21 16:06 37.3 06/14/21 16:00 122 30 99/50 88 Mechanical Ventilator 100.00 06/14/21 15:20 114 47 88 100 06/14/21 15:00 129 17 122/44 88 Mechanical Ventilator 100.00 06/14/21 14:38 130 113/48 06/14/21 14:37 129 113/48 06/14/21 14:00 135 23 118/42 88 Mechanical Ventilator 100.00 06/14/21 13:30 135 100/61 06/14/21 13:30 137 100/61 06/14/21 13:00 140 29 108/60 88 Mechanical Ventilator 100.00 06/14/21 13:00 141 06/14/21 12:17 100 06/14/21 12:15 86 Mechanical Ventilator 100 06/14/21 12:00 146 30 105/52 87 Mechanical Ventilator 100.00 06/14/21 11:45 37.3 06/14/21 11:31 149 54 86 100 06/14/21 11:11 146 94/40 06/14/21 11:05 123 22 94/40 06/14/21 11:00 142 9 96/57 82 Mechanical Ventilator 100.00 06/14/21 10:06 134 95/54 06/14/21 10:06 134 95/54 06/14/21 10:00 131 111/65 85 Mechanical Ventilator 100.00 06/14/21 09:26 140 107/59 06/14/21 09:17 131 59 85 100 06/14/21 09:00 128 111/44 88 Mechanical Ventilator 100.00 06/14/21 08:00 Mechanical Ventilator 100 06/14/21 08:00 120 35 104/27 91 Mechanical Ventilator 100.00 06/14/21 08:00 100 06/14/21 07:45 37.3 06/14/21 07:04 87 39 90 100 06/14/21 07:00 98 101/60 92 Mechanical Ventilator 100.00 06/14/21 06:31 89 06/14/21 06:00 89 19 104/34 86 Mechanical Ventilator 100.00 06/14/21 05:50 66/52 06/14/21 05:00 81 31 94/32 90 Mechanical Ventilator 100.00 I & O 06/15/21 07:00 Intake Total 2610 ml Output Total 400 ml Balance 2210 ml Height & Weight Height: '" Weight: lbs. oz. kg; 44.44 BMI Method: General Appearance: Obese, Other (intubated and sedated) HEENT: PERRL/EOMI, Pharynx Normal Neck: Normal Inspection, Supple Respiratory: No Respiratory Distress, Decreased Breath Sounds, Other (intubated and mechanically ventilated) Cardiovascular: No Edema, No Murmur, Tachycardia Capillary Refill: Less Than 3 Seconds Peripheral Pulses: 1+ Dorsalis Pedis (R), 1+ Left Dors-Pedis (L) (See free text) Extremity: Normal Inspection, No Pedal Edema Neurologic/Psychiatric: Other (sedated) Skin: Normal Color, Cool Results Lab Laboratory Tests 06/14/21 04:10 Assessment/Plan Assessment/Plan Code blue called: acls ran for 20 minutes wo rosc; code blue was called. RADHA NEVAREZ MD Jun 15, 2021 04:59
--- NOTE | 2021-06-15 05:15 | Inpatient Code Blue ---
General Chief Complaint: COVID19 Suspect/Confirmed Stated Complaint: COVID PNEUMONIA,HYPOXIA Source: RN/MD, old records Exam Limitations: no limitations History of Present Illness Date Seen by Provider: Jun 15, 2021 Time Seen by Provider: 04:30 Initial Comments This provider responded to ICU for for an overhead page CODE BLUE. Upon arrival compressions were being given. 1 epinephrine and 1 bicarb had been given. Patient had a ET tube in place at 23 at the lips and was being given rescue breaths by [id number] and 100% FiO2. Pulse oximetry measured 65%. Staff remarks that the patient had recently been switched from prone to supine and had a desaturation down to 65%. They have stayed in the room and bagged her back up to the upper 90s before putting her on the vent. They stepped out of the room to check on another patient and then noticed asystole on the monitor. The patient has COVID-19 and was intubated pursuant to respiratory failure and hypoxemia. We did briefly speak to the during the code. Allergies and Home Medications Allergies Coded Allergies: ferric carboxymaltose (Verified Allergy, Intermediate, 11/16/18) Penicillins (Verified Allergy, Unknown, 11/16/18) Patient Home Medication List Home Medication List Reviewed: Yes Acetaminophen (Tylenol Extra Strength) 500 Mg Tablet, 500-1,000 MG PO Q8H PRN for PAIN-MILD (1-4) OR TEMPATURE, (Reported) Entered as Reported by: LAURIE LEVY on 06/10/21 105 Last Action: Reviewed Albuterol Sulfate (Ventolin Hfa) 18 Gm Hfa.aer.ad, 1-2 PUFF INH Q6H PRN for SHORTNESS OF BREATH, (Reported) Entered as Reported by: LAURIE LEVY on 06/10/211054 Last Action: Reviewed Ibuprofen (Ibuprofen) 200 Mg Capsule, 400-600 MG PO Q8H PRN for PAIN-MILD (1-4), (Reported) Entered as Reported by: LAURIE LEVY on 06/10/211054 Last Action: Reviewed Physical Exam Vital Signs Vital Signs - First Documented 06/09/21 06/09/21 19:05 22:45 Temp 37.1 Pulse 105 Resp 20 B/P (MAP) 130/66 (87) Pulse Ox 72 O2 Delivery Room Air O2 Flow Rate 8.00 FiO2 80 Capillary Refill : Less Than 3 Seconds Height, Weight, BMI Height: '" Weight: lbs. oz. kg; 44.44 BMI Method: General Appearance: severe distress, obese Respiratory: respiratory distress ([id number]), wheezing, other (Bilateral lung sounds auscultated) Cardiovascular: other (Asystole on first pulse check) Gastrointestinal: soft; No distended Skin: damp, pallor, other (Cyanotic) Procedures/Interventions Date of ETT Placement: Jun 13, 2021 Time of ETT Placement: 1910 Intubation Method: orotracheal Tube Size: 7.50 Medications: Propofol (200), Rocuronium (50 Post intubation), Succinylcholine (100), Versed (5 Post intubation) Positive End Tide CO2: Yes Breath Sounds after Intubation: bilateral-equal Intubation Complications: no complications, O2 saturation decreased (92-59%) Post Intubation Xray: Yes (in progress) CPR: See nursing notes for times. We did deliver multiple 200 J shocks for VT tachycardia and gave her 5 doses of epinephrine as well as 3 doses of bicarb, calcium and D50. Blood sugar was 90. As CPR went along oxygen saturations were in the 40s despite maximizing respiratory effort. We several times checked to make sure the tube was in good position and had good breath sounds bilaterally, symmetric. Good compressions were being delivered which developed a blood pressure on the monitor. Final rhythm was pulseless, asystole. After discussing with the participants in the room as well as the eICU doctor we all agreed that all further resuscitative efforts were futile and the patient's status was only worsening despite maximal resuscitative efforts. The code was called at 0451 Rhythm: Asystole Critical Care Note Critical Care Start Time: 04:30 Stop Time: 04:51 Total Time (minutes) 21 mins Date of : Jun 15, 2021 Time of : 04:51 Progress I attest to 21 minutes critical care time managing this patient is a CODE BLUE inpatient. Manage the patient's oxygenation, CPR, medication and ACLS delivery, taking a history from the nurse and staff, comanaging with eICU and talking to family on the cell phone. Progress/Results/Core Measures Results/Orders Lab Results Laboratory Tests Test 06/09/21 19:36 06/09/21 20:04 06/09/21 20:40 06/10/21 04:50 Range/Units White Blood Count 5.4 4.0 L 4.3-11.0 10^3/uL Red Blood Count 4.46 4.22 3.80-5.11 10^6/uL Hemoglobin 9.6 L 9.1 L 11.5-16.0 g/dL Hematocrit 32 L 30 L 35-52 % Mean Corpuscular Volume 71 L 71 L 80-99 fL Mean Corpuscular Hemoglobin 22 L 22 L 25-34 pg Mean Corpuscular Hemoglobin Concent 30 L 30 L 32-36 g/dL Red Cell Distribution Width 18.5 H 18.1 H 10.0-14.5 % Platelet Count 193 190 130-400 10^3/uL Mean Platelet Volume 11.5 11.2 9.0-12.2 fL Immature Granulocyte % (Auto) 1 1 % Neutrophils (%) (Auto) 71 81 H 42-75 % Lymphocytes (%) (Auto) 26 16 12-44 % Monocytes (%) (Auto) 2 2 0-12 % Eosinophils (%) (Auto) 0 0 0-10 % Basophils (%) (Auto) 0 0 0-10 % Neutrophils # (Auto) 3.9 3.3 1.8-7.8 10^3/uL Lymphocytes # (Auto) 1.4 0.7 L 1.0-4.0 10^3/uL Monocytes # (Auto) 0.1 0.1 0.0-1.0 10^3/uL Eosinophils # (Auto) 0.0 0.0 0.0-0.3 10^3/uL Basophils # (Auto) 0.0 0.0 0.0-0.1 10^3/uL Immature Granulocyte # (Auto) 0.0 0.0 0.0-0.1 10^3/uL Prothrombin Time 13.8 12.2-14.7 SEC INR Comment 1.0 0.8-1.4 Activated Partial Thromboplast Time 33 24-35 SEC D-Dimer 0.92 H 0.96 H 0.00-0.49 UG/ML Sodium Level 136 137 135-145 MMOL/L Potassium Level 3.0 L 3.4 L 3.6-5.0 MMOL/L Chloride Level 97 L 102 98-107 MMOL/L Carbon Dioxide Level 25 22 21-32 MMOL/L Anion Gap 14 13 5-14 MMOL/L Blood Urea Nitrogen 5 L 6 L 7-18 MG/DL Creatinine 0.78 0.70 0.60-1.30 MG/DL Estimat Glomerular Filtration Rate 87 98 BUN/Creatinine Ratio 6 9 Glucose Level 93 158 H 70-105 MG/DL Lactic Acid Level 1.04 0.50-2.00 MMOL/L Calcium Level 8.1 L 8.1 L 8.5-10.1 MG/DL Corrected Calcium 8.3 L 8.5 8.5-10.1 MG/DL Total Bilirubin 0.5 0.4 0.1-1.0 MG/DL Aspartate Amino Transf (AST/SGOT) 34 36 H 5-34 U/L Alanine Aminotransferase (ALT/SGPT) 23 24 0-55 U/L Alkaline Phosphatase 54 43 40-136 U/L Troponin I < 0.30 <0.30 NG/ML C-Reactive Protein 17.44 H <0.50 MG/DL Total Protein 7.7 7.2 6.4-8.2 GM/DL Albumin 3.7 3.5 3.2-4.5 GM/DL Serum Test, Qualitative NEGATIVE NEGATIVE Blood Gas Puncture Site LEFT RADIAL Blood Gas Patient Temperature 37.1 Arterial Blood pH 7.45 H 7.37-7.43 Arterial Blood Partial Pressure CO2 39 35-45 MMHG Arterial Blood Partial Pressure O2 59 L 79-93 MMHG Arterial Blood HCO3 27 23-27 MMOL/L Arterial Blood Total CO2 28.3 21.0-31.0 MMOL/L Arterial Blood Oxygen Saturation 91 L 94-100 % Arterial Blood Base Excess 3.0 H -2.5-2.5 MMOL/L Meng Test YES-POS Blood Gas Ventilator Setting NO Blood Gas Inspired Oxygen 8 L Urine Color RED H Urine Clarity SL CLOUDY Urine pH 7.0 5-9 Urine Specific [place] 1.010 L 1.016-1.022 Urine Protein 2+ H NEGATIVE Urine Glucose (UA) NEGATIVE NEGATIVE Urine Ketones NEGATIVE NEGATIVE Urine Nitrite NEGATIVE NEGATIVE Urine Bilirubin NEGATIVE NEGATIVE Urine Urobilinogen 0.2 < = 1.0 MG/DL Urine Leukocyte Esterase NEGATIVE NEGATIVE Urine RBC (Auto) 3+ H NEGATIVE Urine RBC >100 H /HPF Urine WBC 2-5 /HPF Urine Squamous Epithelial Cells 2-5 /HPF Urine Crystals NONE /LPF Urine Bacteria NEGATIVE /HPF Urine Casts NONE /LPF Urine Mucus NEGATIVE /LPF Urine Culture Indicated NO Neutrophils % (Manual) 80 % Lymphocytes % (Manual) 17 % Monocytes % (Manual) 2 % Atypical Lymphocytes 1 % Polychromasia SLIGHT Hypochromasia MODERATE Poikilocytosis SLIGHT Anisocytosis SLIGHT Microcytosis SLIGHT Elliptocytes SLIGHT Phosphorus Level 3.9 2.3-4.7 MG/DL Magnesium Level 2.0 1.6-2.4 MG/DL Creatine Kinase MB 0.7 <6.6 NG/ML Procalcitonin 0.09 <0.10 NG/ML Test 06/10/21 20:34 06/11/21 04:10 06/11/21 10:43 06/11/21 12:19 Range/Units Glucometer 147 H 114 H 70-110 MG/DL White Blood Count 4.9 4.3-11.0 10^3/uL Red Blood Count 4.46 3.80-5.11 10^6/uL Hemoglobin 9.5 L 11.5-16.0 g/dL Hematocrit 32 L 35-52 % Mean Corpuscular Volume 72 L 80-99 fL Mean Corpuscular Hemoglobin 21 L 25-34 pg Mean Corpuscular Hemoglobin Concent 30 L 32-36 g/dL Red Cell Distribution Width 18.3 H 10.0-14.5 % Platelet Count 247 130-400 10^3/uL Mean Platelet Volume 11.2 9.0-12.2 fL Immature Granulocyte % (Auto) 1 % Neutrophils (%) (Auto) 71 42-75 % Lymphocytes (%) (Auto) 24 12-44 % Monocytes (%) (Auto) 4 0-12 % Eosinophils (%) (Auto) 0 0-10 % Basophils (%) (Auto) 0 0-10 % Neutrophils # (Auto) 3.4 1.8-7.8 10^3/uL Lymphocytes # (Auto) 1.2 1.0-4.0 10^3/uL Monocytes # (Auto) 0.2 0.0-1.0 10^3/uL Eosinophils # (Auto) 0.0 0.0-0.3 10^3/uL Basophils # (Auto) 0.0 0.0-0.1 10^3/uL Immature Granulocyte # (Auto) 0.1 0.0-0.1 10^3/uL D-Dimer 0.97 H 0.00-0.49 UG/ML Sodium Level 139 135-145 MMOL/L Potassium Level 4.0 3.6-5.0 MMOL/L Chloride Level 104 98-107 MMOL/L Carbon Dioxide Level 23 21-32 MMOL/L Anion Gap 12 5-14 MMOL/L Blood Urea Nitrogen 8 7-18 MG/DL Creatinine 0.65 0.60-1.30 MG/DL Estimat Glomerular Filtration Rate 107 BUN/Creatinine Ratio 12 Glucose Level 133 H 70-105 MG/DL Calcium Level 8.6 8.5-10.1 MG/DL Corrected Calcium 9.1 8.5-10.1 MG/DL Phosphorus Level 2.9 2.3-4.7 MG/DL Magnesium Level 2.3 1.6-2.4 MG/DL Total Bilirubin 0.3 0.1-1.0 MG/DL Aspartate Amino Transf (AST/SGOT) 30 5-34 U/L Alanine Aminotransferase (ALT/SGPT) 22 0-55 U/L Alkaline Phosphatase 40 40-136 U/L Total Protein 7.2 6.4-8.2 GM/DL Albumin 3.4 3.2-4.5 GM/DL Triglycerides Level 247 H <150 MG/DL Procalcitonin 0.05 <0.10 NG/ML Blood Gas Puncture Site RT RAD Blood Gas Patient Temperature 36.1 Arterial Blood pH 7.45 H 7.37-7.43 Arterial Blood Partial Pressure CO2 39 35-45 MMHG Arterial Blood Partial Pressure O2 60 L 79-93 MMHG Arterial Blood HCO3 27 23-27 MMOL/L Arterial Blood Total CO2 28.4 21.0-31.0 MMOL/L Arterial Blood Oxygen Saturation 92 L 94-100 % Arterial Blood Base Excess 3.2 H -2.5-2.5 MMOL/L Meng Test YES-POS Blood Gas Ventilator Setting NO Blood Gas Inspired Oxygen 100% Test 06/11/21 15:44 06/11/21 20:30 06/12/21 01:43 06/12/21 04:58 Range/Units Glucometer 137 H 141 H 70-110 MG/DL Blood Gas Puncture Site RIGHT RADIAL RIGHT RADIAL Blood Gas Patient Temperature 36.8 36.8 Arterial Blood pH 7.41 7.42 7.37-7.43 Arterial Blood Partial Pressure CO2 41 42 35-45 MMHG Arterial Blood Partial Pressure O2 73 L 74 L 79-93 MMHG Arterial Blood HCO3 26 27 23-27 MMOL/L Arterial Blood Total CO2 26.7 28.1 21.0-31.0 MMOL/L Arterial Blood Oxygen Saturation 95 94 94-100 % Arterial Blood Base Excess 1.2 2.7 H -2.5-2.5 MMOL/L Meng Test YES-POS YES-POS Blood Gas Ventilator Setting YES YES Blood Gas Inspired Oxygen 100% 75% Test 06/12/21 05:00 06/12/21 11:14 06/12/21 17:36 06/12/21 23:22 Range/Units White Blood Count 7.6 4.3-11.0 10^3/uL Red Blood Count 4.49 3.80-5.11 10^6/uL Hemoglobin 9.9 L 11.5-16.0 g/dL Hematocrit 33 L 35-52 % Mean Corpuscular Volume 73 L 80-99 fL Mean Corpuscular Hemoglobin 22 L 25-34 pg Mean Corpuscular Hemoglobin Concent 30 L 32-36 g/dL Red Cell Distribution Width 18.3 H 10.0-14.5 % Platelet Count 319 130-400 10^3/uL Mean Platelet Volume 10.9 9.0-12.2 fL Immature Granulocyte % (Auto) 2 % Neutrophils (%) (Auto) 74 42-75 % Lymphocytes (%) (Auto) 21 12-44 % Monocytes (%) (Auto) 3 0-12 % Eosinophils (%) (Auto) 0 0-10 % Basophils (%) (Auto) 0 0-10 % Neutrophils # (Auto) 5.6 1.8-7.8 10^3/uL Lymphocytes # (Auto) 1.6 1.0-4.0 10^3/uL Monocytes # (Auto) 0.3 0.0-1.0 10^3/uL Eosinophils # (Auto) 0.0 0.0-0.3 10^3/uL Basophils # (Auto) 0.0 0.0-0.1 10^3/uL Immature Granulocyte # (Auto) 0.1 0.0-0.1 10^3/uL Sodium Level 139 135-145 MMOL/L Potassium Level 4.3 3.6-5.0 MMOL/L Chloride Level 104 98-107 MMOL/L Carbon Dioxide Level 19 L 21-32 MMOL/L Anion Gap 16 H 5-14 MMOL/L Blood Urea Nitrogen 14 7-18 MG/DL Creatinine 0.71 0.60-1.30 MG/DL Estimat Glomerular Filtration Rate 97 BUN/Creatinine Ratio 20 Glucose Level 122 H 70-105 MG/DL Calcium Level 8.2 L 8.5-10.1 MG/DL Corrected Calcium 8.8 8.5-10.1 MG/DL Phosphorus Level 4.7 2.3-4.7 MG/DL Magnesium Level 2.3 1.6-2.4 MG/DL Total Bilirubin 0.4 0.1-1.0 MG/DL Aspartate Amino Transf (AST/SGOT) 32 5-34 U/L Alanine Aminotransferase (ALT/SGPT) 21 0-55 U/L Alkaline Phosphatase 44 40-136 U/L Total Protein 7.3 6.4-8.2 GM/DL Albumin 3.3 3.2-4.5 GM/DL Glucometer 107 141 H 111 H 70-110 MG/DL Test 06/13/21 04:45 06/13/21 04:50 06/13/21 11:18 06/13/21 11:56 Range/Units White Blood Count 12.9 H 4.3-11.0 10^3/uL Red Blood Count 4.42 3.80-5.11 10^6/uL Hemoglobin 9.9 L 11.5-16.0 g/dL Hematocrit 33 L 35-52 % Mean Corpuscular Volume 74 L 80-99 fL Mean Corpuscular Hemoglobin 22 L 25-34 pg Mean Corpuscular Hemoglobin Concent 30 L 32-36 g/dL Red Cell Distribution Width 18.0 H 10.0-14.5 % Platelet Count 347 130-400 10^3/uL Mean Platelet Volume 10.0 9.0-12.2 fL Immature Granulocyte % (Auto) 2 % Neutrophils (%) (Auto) 78 H 42-75 % Lymphocytes (%) (Auto) 18 12-44 % Monocytes (%) (Auto) 2 0-12 % Eosinophils (%) (Auto) 0 0-10 % Basophils (%) (Auto) 0 0-10 % Neutrophils # (Auto) 10.2 H 1.8-7.8 10^3/uL Lymphocytes # (Auto) 2.3 1.0-4.0 10^3/uL Monocytes # (Auto) 0.2 0.0-1.0 10^3/uL Eosinophils # (Auto) 0.0 0.0-0.3 10^3/uL Basophils # (Auto) 0.0 0.0-0.1 10^3/uL Immature Granulocyte # (Auto) 0.2 H 0.0-0.1 10^3/uL D-Dimer 3.31 H 0.00-0.49 UG/ML Sodium Level 141 135-145 MMOL/L Potassium Level 3.9 3.6-5.0 MMOL/L Chloride Level 103 98-107 MMOL/L Carbon Dioxide Level 13 L 21-32 MMOL/L Anion Gap 25 H 5-14 MMOL/L Blood Urea Nitrogen 12 7-18 MG/DL Creatinine 0.68 0.60-1.30 MG/DL Estimat Glomerular Filtration Rate 102 BUN/Creatinine Ratio 18 Glucose Level 86 70-105 MG/DL Calcium Level 7.7 L 8.5-10.1 MG/DL Corrected Calcium 8.3 L 8.5-10.1 MG/DL Phosphorus Level 3.1 2.3-4.7 MG/DL Magnesium Level 2.1 1.6-2.4 MG/DL Total Bilirubin 0.5 0.1-1.0 MG/DL Aspartate Amino Transf (AST/SGOT) 28 5-34 U/L Alanine Aminotransferase (ALT/SGPT) 19 0-55 U/L Alkaline Phosphatase 63 40-136 U/L Total Protein 7.3 6.4-8.2 GM/DL Albumin 3.2 3.2-4.5 GM/DL Triglycerides Level 1869 H <150 MG/DL Procalcitonin 0.03 <0.10 NG/ML Blood Gas Puncture Site LEFT RADIAL LEFT RADIAL ART LINE Blood Gas Patient Temperature 36.3 36.5 Arterial Blood pH 7.41 7.36 L 7.37-7.43 Arterial Blood Partial Pressure CO2 43 50 H 35-45 MMHG Arterial Blood Partial Pressure O2 73 L 52 L 79-93 MMHG Arterial Blood HCO3 27 27 23-27 MMOL/L Arterial Blood Total CO2 28.5 28.8 21.0-31.0 MMOL/L Arterial Blood Oxygen Saturation 93 L 79 L 94-100 % Arterial Blood Base Excess 2.7 H 2.2 -2.5-2.5 MMOL/L Meng Test YES-POS ART LINE Blood Gas Ventilator Setting NO YES Blood Gas Inspired Oxygen 85% 100% Glucometer 169 H 70-110 MG/DL Test 06/13/21 17:59 06/13/21 23:46 06/14/21 04:10 06/14/21 11:31 Range/Units Glucometer 125 H 118 H 141 H 70-110 MG/DL White Blood Count 13.4 H 4.3-11.0 10^3/uL Red Blood Count 4.13 3.80-5.11 10^6/uL Hemoglobin 9.9 L 11.5-16.0 g/dL Hematocrit 31 L 35-52 % Mean Corpuscular Volume 76 L 80-99 fL Mean Corpuscular Hemoglobin 24 L 25-34 pg Mean Corpuscular Hemoglobin Concent 32 32-36 g/dL Red Cell Distribution Width 18.7 H 10.0-14.5 % Platelet Count 241 130-400 10^3/uL Mean Platelet Volume 9.8 9.0-12.2 fL Immature Granulocyte % (Auto) 2 % Neutrophils (%) (Auto) 77 H 42-75 % Lymphocytes (%) (Auto) 19 12-44 % Monocytes (%) (Auto) 3 0-12 % Eosinophils (%) (Auto) 1 0-10 % Basophils (%) (Auto) 0 0-10 % Neutrophils # (Auto) 10.2 H 1.8-7.8 10^3/uL Lymphocytes # (Auto) 2.5 1.0-4.0 10^3/uL Monocytes # (Auto) 0.3 0.0-1.0 10^3/uL Eosinophils # (Auto) 0.1 0.0-0.3 10^3/uL Basophils # (Auto) 0.0 0.0-0.1 10^3/uL Immature Granulocyte # (Auto) 0.2 H 0.0-0.1 10^3/uL D-Dimer > 20.00 H 0.00-0.49 UG/ML Blood Gas Puncture Site RIGHT RADIAL Blood Gas Patient Temperature 36.6 Arterial Blood pH 7.36 L 7.37-7.43 Arterial Blood Partial Pressure CO2 52 H 35-45 MMHG Arterial Blood Partial Pressure O2 77 L 79-93 MMHG Arterial Blood HCO3 28 H 23-27 MMOL/L Arterial Blood Total CO2 30.0 21.0-31.0 MMOL/L Arterial Blood Oxygen Saturation 94 94-100 % Arterial Blood Base Excess 3.3 H -2.5-2.5 MMOL/L Meng Test YES-POS Blood Gas Ventilator Setting YES Blood Gas Inspired Oxygen 100% Sodium Level 138 135-145 MMOL/L Potassium Level 4.5 3.6-5.0 MMOL/L Chloride Level 101 98-107 MMOL/L Carbon Dioxide Level 15 L 21-32 MMOL/L Anion Gap 22 H 5-14 MMOL/L Blood Urea Nitrogen 8 7-18 MG/DL Creatinine 0.93 0.60-1.30 MG/DL Estimat Glomerular Filtration Rate 71 BUN/Creatinine Ratio 9 Glucose Level 111 H 70-105 MG/DL Lactic Acid Level 1.65 0.50-2.00 MMOL/L Calcium Level 7.4 L 8.5-10.1 MG/DL Corrected Calcium 8.2 L 8.5-10.1 MG/DL Phosphorus Level 2.8 2.3-4.7 MG/DL Magnesium Level 2.1 1.6-2.4 MG/DL Total Bilirubin 0.4 0.1-1.0 MG/DL Aspartate Amino Transf (AST/SGOT) 27 5-34 U/L Alanine Aminotransferase (ALT/SGPT) 21 0-55 U/L Alkaline Phosphatase 73 40-136 U/L Total Protein 7.4 6.4-8.2 GM/DL Albumin 3.0 L 3.2-4.5 GM/DL Beta-Hydroxybutyrate (Chem panel) 0.42 H 0.00-0.27 MMOL/L Test 06/14/21 17:47 06/14/21 23:43 06/15/21 04:39 Range/Units Glucometer 154 H 149 H 92 70-110 MG/DL Micro Results Microbiology 06/12/21 Gram Stain - Final, Resulted 06/12/21 Sputum Culture - Preliminary, Resulted Usual Mixed Tiffany Moraxella catarrhalis 06/09/21 MRSA Screen - Final, Complete MRSA not isolated 06/09/21 Blood Culture - Preliminary, Resulted No growth 06/09/21 Blood Culture - Preliminary, Resulted No growth Medications Given in ED Current Medications Medications Dose Ordered Sig/Nisha Route Start Time Stop Time Status Last Admin Dose Admin Acetaminophen 650 mg Q4H PRN GA 06/14/21 19:00 06/14/21 18:55 650 MG Vital Signs/I&O 06/09/21 06/09/21 06/09/21 06/09/21 19:05 19:05 19:30 20:00 Temp 37.1 Pulse 105 105 101 Resp 20 20 20 B/P (MAP) 130/66 (87) 109/61 109/60 Pulse Ox 72 92 92 93 O2 Delivery Room Air Nasal Cannula Nasal Cannula Nasal Cannula O2 Flow Rate 8.00 8.00 8.00 06/09/21 06/09/21 06/09/21 06/09/21 20:30 21:00 22:00 22:30 Temp 38.3 Pulse 103 107 105 Resp 20 20 27 B/P (MAP) 126/66 129/65 Pulse Ox 93 92 84 O2 Delivery Nasal Cannula Nasal Cannula Nasal Cannula O2 Flow Rate 8.00 8.00 8.00 06/09/21 06/09/21 06/09/21 06/09/21 22:45 22:57 23:00 23:00 Temp 38.3 Pulse 107 95 Resp 29 B/P (MAP) 122/71 Pulse Ox 72 92 91 O2 Delivery Vapotherm Vapotherm Vapotherm O2 Flow Rate 30.00 30.00 30.00 65.00 FiO2 80 60 70 06/09/21 06/10/21 06/10/21 06/10/21 23:47 00:00 00:00 01:00 Pulse 110 97 86 Resp 30 B/P (MAP) 122/64 139/90 Pulse Ox 91 91 92 O2 Delivery Vapotherm Vapotherm Vapotherm O2 Flow Rate 30.00 30.00 30.00 65.00 65.00 FiO2 80 06/10/21 06/10/21 06/10/21 06/10/21 01:00 02:00 02:41 03:00 Pulse 92 85 90 Resp 30 32 B/P (MAP) 125/67 121/60 Pulse Ox 91 90 91 O2 Delivery Vapotherm Vapotherm Vapotherm O2 Flow Rate 30.00 30.00 30.00 65.00 65.00 FiO2 80 06/10/21 06/10/21 06/10/21 06/10/21 04:00 04:00 04:00 05:00 Temp 37.2 Pulse 84 78 Resp 30 17 B/P (MAP) 114/61 115/59 Pulse Ox 91 91 91 O2 Delivery Vapotherm Vapotherm Vapotherm O2 Flow Rate 30.00 30.00 30.00 65.00 65.00 FiO2 80 06/10/21 06/10/21 06/10/21 06/10/21 06:00 07:00 07:15 07:37 Pulse 79 76 81 Resp 24 B/P (MAP) 120/61 127/71 Pulse Ox 91 94 90 O2 Delivery Vapotherm Vapotherm Vapotherm O2 Flow Rate 30.00 30.00 30.00 65.00 65.00 FiO2 100 06/10/21 06/10/21 06/10/21 06/10/21 08:00 08:15 09:00 10:00 Pulse 91 92 88 Resp 26 28 28 B/P (MAP) 134/74 113/69 124/62 Pulse Ox 90 92 93 90 O2 Delivery Vapotherm Vapotherm Vapotherm Vapotherm O2 Flow Rate 40.00 40.00 40.00 40.00 100.00 100.00 100.00 FiO2 100 06/10/21 06/10/21 06/10/21 06/10/21 10:32 11:00 11:43 11:47 Temp 37.3 35.9 Pulse 103 Resp 18 B/P (MAP) 128/71 Pulse Ox 95 90 O2 Delivery Vapotherm Vapotherm O2 Flow Rate 40.00 40.00 100.00 FiO2 90 06/10/21 06/10/21 06/10/21 06/10/21 12:00 12:15 12:57 13:00 Pulse 88 92 97 Resp 20 22 B/P (MAP) 122/68 121/81 Pulse Ox 97 94 90 O2 Delivery Vapotherm Vapotherm Vapotherm O2 Flow Rate 40.00 40.00 40.00 100.00 100.00 FiO2 100 06/10/21 06/10/21 06/10/21 06/10/21 14:00 14:18 15:00 16:00 Temp 36.6 Pulse 90 92 Resp 20 16 B/P (MAP) 136/75 95/85 Pulse Ox 92 93 93 O2 Delivery Vapotherm Vapotherm Vapotherm O2 Flow Rate 40.00 40.00 40.00 100.00 100.00 FiO2 90 06/10/21 06/10/21 06/10/21 06/10/21 16:00 16:15 16:51 17:00 Pulse 88 87 Resp 18 16 B/P (MAP) 131/72 109/55 Pulse Ox 93 91 97 O2 Delivery Vapotherm Vapotherm Vapotherm Vapotherm O2 Flow Rate 40.00 40.00 40.00 40.00 100.00 70.00 70.00 FiO2 90 06/10/21 06/10/21 06/10/21 06/10/21 18:00 18:23 18:32 19:00 Pulse 96 96 Resp 18 B/P (MAP) 111/53 Pulse Ox 93 90 O2 Delivery Vapotherm Vapotherm Vapotherm O2 Flow Rate 40.00 40.00 40.00 70.00 100.00 FiO2 100 06/10/21 06/10/21 06/10/21 06/10/21 19:00 19:29 20:00 20:00 Temp 37.0 Pulse 96 90 Resp 22 31 B/P (MAP) 118/67 Pulse Ox 92 92 94 O2 Delivery Vapotherm Vapotherm Vapotherm O2 Flow Rate 40.00 40.00 40.00 100.00 100.00 FiO2 100 06/10/21 06/10/21 06/10/21 06/10/21 21:00 22:00 22:30 23:00 Pulse 98 84 87 Resp 35 35 32 B/P (MAP) 105/52 107/67 111/60 Pulse Ox 94 94 89 90 O2 Delivery Vapotherm Vapotherm Vapotherm Vapotherm O2 Flow Rate 40.00 40.00 40.00 40.00 100.00 100.00 100.00 FiO2 100 06/10/21 06/11/21 06/11/21 06/11/21 23:59 00:00 00:44 01:00 Temp 37.1 Pulse 94 90 Resp 30 B/P (MAP) 110/64 Pulse Ox 93 90 O2 Delivery Vapotherm Vapotherm O2 Flow Rate 40.00 40.00 100.00 FiO2 100 06/11/21 06/11/21 06/11/21 06/11/21 01:00 02:00 02:34 03:00 Pulse 74 70 76 Resp 28 22 30 B/P (MAP) 115/65 112/69 120/68 Pulse Ox 93 93 90 91 O2 Delivery Vapotherm Vapotherm Vapotherm Vapotherm O2 Flow Rate 40.00 40.00 40.00 40.00 100.00 100.00 100.00 FiO2 100 06/11/21 06/11/21 06/11/21 06/11/21 04:00 04:14 05:00 05:24 Pulse 70 82 82 Resp 30 21 B/P (MAP) 123/56 129/69 129/69 Pulse Ox 82 92 88 O2 Delivery Vapotherm Vapotherm Vapotherm O2 Flow Rate 40.00 40.00 40.00 100.00 100.00 FiO2 100 06/11/21 06/11/21 06/11/21 06/11/21 05:25 05:44 06:00 07:00 Temp 36.6 Pulse 71 71 68 B/P (MAP) 117/75 122/72 Pulse Ox 91 O2 Delivery NIV Bilevel NIV Bilevel O2 Flow Rate 100.00 100.00 06/11/21 06/11/21 06/11/21 06/11/21 07:00 07:31 07:43 08:00 Temp 35.9 Pulse 69 64 67 Resp 7 54 11 B/P (MAP) 119/79 122/78 Pulse Ox 91 94 92 O2 Delivery NIV Bilevel NIV Bilevel O2 Flow Rate 100.00 100.00 100.00 06/11/21 06/11/21 06/11/21 06/11/21 08:00 09:00 10:00 10:51 Pulse 80 66 64 Resp 24 54 B/P (MAP) 134/82 115/82 Pulse Ox 90 88 91 93 O2 Delivery NIV Bilevel NIV Bilevel NIV Bilevel O2 Flow Rate 100.00 100.00 100.00 FiO2 100 06/11/21 06/11/21 06/11/21 06/11/21 11:00 12:00 12:00 12:07 Temp 36.1 Pulse 63 66 B/P (MAP) 138/85 119/81 Pulse Ox 91 90 90 O2 Delivery NIV Bilevel NIV Bilevel NIV Bilevel O2 Flow Rate 100.00 100.00 FiO2 100 06/11/21 06/11/21 06/11/21 06/11/21 13:00 13:00 14:00 14:21 Pulse 69 60 64 73 Resp 54 B/P (MAP) 120/78 131/77 Pulse Ox 91 90 91 O2 Delivery NIV Bilevel NIV Bilevel O2 Flow Rate 100.00 100.00 100.00 12/24/21 06/11/21 06/11/21 06/11/21 15:00 15:58 16:00 16:00 Temp 35.0 Pulse 69 69 Resp 41 16 B/P (MAP) 132/88 111/101 Pulse Ox 89 90 87 O2 Delivery NIV Bilevel NIV Bilevel NIV Bilevel O2 Flow Rate 100.00 100.00 FiO2 100 06/11/21 06/11/21 06/11/21 06/11/21 17:00 18:00 18:42 18:54 Pulse 69 61 68 66 Resp 20 50 B/P (MAP) 136/92 141/92 Pulse Ox 93 89 90 O2 Delivery NIV Bilevel NIV Bilevel O2 Flow Rate 100.00 100.00 100.00 06/11/21 06/11/21 06/11/21 06/11/21 19:00 19:00 19:11 19:12 Pulse 80 66 63 78 Resp 20 28 B/P (MAP) 126/71 Pulse Ox 91 89 O2 Delivery Mechanical Ventilator O2 Flow Rate 100.00 FiO2 100 06/11/21 06/11/21 06/11/21 06/11/21 20:00 20:00 21:00 22:00 Pulse 61 57 57 Resp 27 28 28 B/P (MAP) 124/76 126/77 122/77 Pulse Ox 92 92 96 97 O2 Delivery Mechanical Ventilator Mechanical Ventilator Mechanical Ventilator Mechanical Ventilator O2 Flow Rate 100.00 100.00 80.00 FiO2 100 06/11/21 06/11/21 06/11/21 06/11/21 22:16 22:17 22:19 23:00 Pulse 60 60 60 57 Resp 28 28 B/P (MAP) 122/79 122/79 125/79 Pulse Ox 95 96 O2 Delivery Mechanical Ventilator O2 Flow Rate 80.00 FiO2 80 06/12/21 06/12/21 06/12/21 06/12/21 00:00 00:00 01:00 01:00 Pulse 56 60 61 Resp 28 31 B/P (MAP) 115/75 121/80 Pulse Ox 97 96 97 O2 Delivery Mechanical Ventilator Mechanical Ventilator Mechanical Ventilator O2 Flow Rate 80.00 80.00 FiO2 80 06/12/21 06/12/21 06/12/21 06/12/21 01:14 02:00 02:06 02:56 Pulse 60 53 53 50 Resp 34 28 B/P (MAP) 132/88 136/92 132/88 Pulse Ox 94 96 O2 Delivery Mechanical Ventilator O2 Flow Rate 80.00 FiO2 75 06/12/21 06/12/21 06/12/21 06/12/21 02:58 03:00 03:09 04:00 Pulse 51 51 Resp 28 B/P (MAP) 132/88 134/84 Pulse Ox 96 95 O2 Delivery Mechanical Ventilator Mechanical Ventilator Mechanical Ventilator O2 Flow Rate 80.00 75.00 FiO2 75 06/12/21 06/12/21 06/12/21 06/12/21 04:00 05:00 05:07 06:00 Pulse 51 61 73 55 Resp 27 33 34 16 B/P (MAP) 127/84 124/80 121/80 Pulse Ox 96 92 86 94 O2 Delivery Mechanical Ventilator Mechanical Ventilator Mechanical Ventilator O2 Flow Rate 75.00 75.00 75.00 06/12/21 06/12/21 06/12/21 06/12/21 06:02 06:57 06:58 07:00 Pulse 54 55 55 57 Resp 28 B/P (MAP) 118/81 118/81 Pulse Ox 94 FiO2 75 06/12/21 06/12/21 06/12/21 06/12/21 07:00 07:38 08:00 08:00 Temp 36.7 Pulse 56 56 57 Resp 121 26 118 B/P (MAP) 121/76 119/79 27/95 Pulse Ox 76 95 78 95 O2 Delivery Mechanical Ventilator Mechanical Ventilator Mechanical Ventilator Mechanical Ventilator O2 Flow Rate 75.00 75.00 75.00 FiO2 75 06/12/21 06/12/21 06/12/21 06/12/21 09:00 10:00 10:18 11:00 Pulse 55 61 59 58 Resp 31 31 28 28 B/P (MAP) 118/75 104/69 111/69 Pulse Ox 94 94 98 98 O2 Delivery Mechanical Ventilator Mechanical Ventilator Mechanical Ventilator O2 Flow Rate 75.00 75.00 75.00 FiO2 75 06/12/21 06/12/21 06/12/21 06/12/21 11:12 11:40 11:40 12:00 Temp 36.8 Pulse 116 59 Pulse Ox 95 O2 Delivery Mechanical Ventilator FiO2 75 06/12/21 06/12/21 06/12/21 06/12/21 12:00 12:50 13:00 14:00 Pulse 59 61 59 58 Resp 27 27 27 B/P (MAP) 124/77 125/73 130/80 Pulse Ox 95 96 93 O2 Delivery Mechanical Ventilator Mechanical Ventilator Mechanical Ventilator O2 Flow Rate 75.00 75.00 75.00 06/12/21 06/12/21 06/12/21 06/12/21 14:02 15:00 15:25 16:00 Temp 36.9 Pulse 59 59 Resp 28 23 B/P (MAP) 132/79 Pulse Ox 95 92 95 O2 Delivery Mechanical Ventilator Mechanical Ventilator O2 Flow Rate 75.00 FiO2 75 75 06/12/21 06/12/21 06/12/21 06/12/21 16:00 16:35 16:36 16:37 Pulse 58 56 55 54 Resp 20 B/P (MAP) 130/77 132/81 132/81 132/81 Pulse Ox 92 O2 Delivery Mechanical Ventilator O2 Flow Rate 75.00 06/12/21 06/12/21 06/12/21 06/12/21 17:00 18:00 18:31 19:00 Pulse 52 51 51 60 Resp 28 27 28 B/P (MAP) 138/85 141/86 Pulse Ox 94 96 96 O2 Delivery Mechanical Ventilator Mechanical Ventilator O2 Flow Rate 75.00 75.00 FiO2 70 06/12/21 06/12/21 06/12/21 06/12/21 19:00 19:45 19:51 19:51 Temp 37.4 Pulse 51 Resp 28 B/P (MAP) 140/82 140/82 140/82 Pulse Ox 94 O2 Delivery Mechanical Ventilator Mechanical Ventilator O2 Flow Rate 70.00 70.00 06/12/21 06/12/21 06/12/21 06/12/21 20:00 20:00 21:00 21:38 Pulse 53 52 52 Resp 27 28 28 B/P (MAP) 140/84 141/87 Pulse Ox 94 95 96 96 O2 Delivery Mechanical Ventilator Mechanical Ventilator Mechanical Ventilator O2 Flow Rate 70.00 70.00 FiO2 70 70 06/12/21 06/12/21 06/13/21 06/13/21 22:00 23:00 00:00 00:00 Temp 36.6 Pulse 53 55 Resp 28 27 B/P (MAP) 142/83 140/85 Pulse Ox 95 95 O2 Delivery Mechanical Ventilator Mechanical Ventilator Mechanical Ventilator O2 Flow Rate 70.00 70.00 FiO2 70 06/13/21 06/13/21 06/13/21 06/13/21 00:00 00:25 00:30 01:00 Pulse 67 68 54 Resp 26 43 B/P (MAP) 129/78 Pulse Ox 92 92 90 O2 Delivery Mechanical Ventilator NIV Bilevel O2 Flow Rate 70.00 85.00 85.00 06/13/21 06/13/21 06/13/21 06/13/21 01:00 01:51 02:00 02:43 Pulse 61 52 73 Resp 24 28 42 B/P (MAP) 133/85 141/93 Pulse Ox 94 91 92 O2 Delivery NIV Bilevel NIV Bilevel O2 Flow Rate 85.00 85.00 85.00 06/13/21 06/13/21 06/13/21 06/13/21 03:00 04:00 04:00 04:42 Temp 36.3 Pulse 58 63 Resp 28 44 B/P (MAP) Pulse Ox 91 92 O2 Delivery NIV Bilevel NIV Bilevel NIV Bilevel O2 Flow Rate 85.00 85.00 FiO2 85 06/13/21 06/13/21 06/13/21 06/13/21 05:00 06:00 07:00 07:00 Pulse 73 80 76 75 Resp 49 45 45 B/P (MAP) 130/82 119/76 119/73 Pulse Ox 91 93 90 O2 Delivery NIV Bilevel NIV Bilevel NIV Bilevel O2 Flow Rate 85.00 85.00 85.00 06/13/21 06/13/21 06/13/21 06/13/21 07:17 07:45 08:00 08:30 Temp 37.0 Pulse 73 76 76 Resp 47 B/P (MAP) 116/74 Pulse Ox 91 90 O2 Delivery NIV Bilevel NIV Bilevel O2 Flow Rate 85.00 85.00 FiO2 85 06/13/21 06/13/21 06/13/21 06/13/21 09:00 10:00 10:49 11:00 Pulse 74 78 82 83 Resp 27 B/P (MAP) 112/67 112/61 Automatic Cuff Pulse Ox 90 93 90 O2 Delivery NIV Bilevel NIV Bilevel Mechanical Ventilator O2 Flow Rate 85.00 85.00 06/13/21 06/13/21 06/13/21 06/13/21 11:05 11:12 12:00 12:00 Temp 36.5 Pulse 81 81 80 Resp 32 27 B/P (MAP) 107/66 107/66 Pulse Ox 96 O2 Delivery Mechanical Ventilator O2 Flow Rate 100.00 06/13/21 06/13/21 06/13/21 06/13/21 12:10 12:55 13:00 14:00 Pulse 79 77 76 Resp 30 27 B/P (MAP) Pulse Ox 86 98 97 O2 Delivery Mechanical Ventilator Mechanical Ventilator Mechanical Ventilator O2 Flow Rate 100.00 100.00 FiO2 100 06/13/21 06/13/21 06/13/21 06/13/21 14:15 14:55 15:00 15:47 Temp 37.4 Pulse 77 76 77 Resp 28 29 B/P (MAP) 122/72 Pulse Ox 96 96 O2 Delivery Mechanical Ventilator O2 Flow Rate 100.00 FiO2 100 06/13/21 06/13/21 06/13/21 06/13/21 16:00 16:12 16:12 16:15 Pulse 78 78 79 Resp 20 B/P (MAP) 133/75 131/75 Pulse Ox 96 96 O2 Delivery Mechanical Ventilator O2 Flow Rate 100.00 FiO2 100 06/13/21 06/13/21 06/13/21 06/13/21 17:00 18:00 18:38 18:38 Pulse 80 80 80 80 Resp 27 27 27 B/P (MAP) 133/75 133/75 Pulse Ox 96 96 O2 Delivery Mechanical Ventilator Mechanical Ventilator O2 Flow Rate 100.00 100.00 06/13/21 06/13/21 06/13/21 06/13/21 18:46 19:00 19:00 19:35 Pulse 80 82 82 82 Resp 31 27 28 B/P (MAP) Pulse Ox 94 96 95 O2 Delivery Mechanical Ventilator Mechanical Ventilator O2 Flow Rate 90.00 90.00 FiO2 90 06/13/21 06/13/21 06/13/21 06/13/21 19:56 20:00 20:13 20:29 Temp 38.0 Pulse 83 Resp 23 B/P (MAP) Pulse Ox 96 O2 Delivery Mechanical Ventilator O2 Flow Rate 90.00 FiO2 100 100 06/13/21 06/13/21 06/13/21 06/13/21 21:00 21:40 22:00 22:31 Pulse 83 83 84 85 Resp 19 22 36 B/P (MAP) Pulse Ox 96 96 96 O2 Delivery Mechanical Ventilator Mechanical Ventilator O2 Flow Rate 90.00 90.00 FiO2 80 06/13/21 06/13/21 06/13/21 06/13/21 22:35 23:00 23:36 23:47 Pulse 86 Resp 19 B/P (MAP) 116/83 Pulse Ox 97 O2 Delivery Mechanical Ventilator Mechanical Ventilator O2 Flow Rate 80.00 80.00 FiO2 80 06/13/21 06/14/21 06/14/21 06/14/21 23:47 00:00 00:00 01:00 Pulse 86 84 Resp 12 B/P (MAP) 126/81 Pulse Ox 96 O2 Delivery Mechanical Ventilator O2 Flow Rate 80.00 FiO2 100 06/14/21 06/14/21 06/14/21 06/14/21 01:00 02:00 02:43 03:00 Pulse 84 84 85 86 Resp 12 14 33 28 B/P (MAP) Pulse Ox 96 95 94 93 O2 Delivery Mechanical Ventilator Mechanical Ventilator Mechanical Ventilator O2 Flow Rate 80.00 80.00 80.00 FiO2 70 06/14/21 06/14/21 06/14/21 06/14/21 03:08 03:15 04:00 04:00 Temp 36.6 Pulse 83 Resp 32 B/P (MAP) 102/85 Pulse Ox 91 O2 Delivery Mechanical Ventilator Mechanical Ventilator O2 Flow Rate 100.00 100.00 06/14/21 06/14/21 06/14/21 06/14/21 04:28 04:28 04:34 04:34 B/P (MAP) 79/36 79/36 FiO2 80 100 06/14/21 06/14/21 06/14/21 06/14/21 04:36 05:00 05:50 06:00 Pulse 81 89 Resp 31 19 B/P (MAP) 79/36 94/32 66/52 104/34 Pulse Ox 90 86 O2 Delivery Mechanical Ventilator Mechanical Ventilator O2 Flow Rate 100.00 100.00 06/14/21 06/14/21 06/14/21 06/14/21 06:31 07:00 07:04 07:45 Temp 37.3 Pulse 89 98 87 Resp 39 B/P (MAP) 101/60 Pulse Ox 92 90 O2 Delivery Mechanical Ventilator O2 Flow Rate 100.00 FiO2 100 06/14/21 06/14/21 06/14/21 06/14/21 08:00 08:00 08:00 09:00 Pulse 120 128 Resp 35 B/P (MAP) 104/27 111/44 Pulse Ox 91 88 O2 Delivery Mechanical Ventilator Mechanical Ventilator Mechanical Ventilator O2 Flow Rate 100.00 100.00 FiO2 100 100 06/14/21 06/14/21 06/14/21 06/14/21 09:17 09:26 10:00 10:06 Pulse 131 140 131 134 Resp 59 B/P (MAP) 107/59 111/65 95/54 Pulse Ox 85 85 O2 Delivery Mechanical Ventilator O2 Flow Rate 100.00 FiO2 100 06/14/21 06/14/21 06/14/21 06/14/21 10:06 11:00 11:05 11:11 Pulse 134 142 123 146 Resp 9 22 B/P (MAP) 95/54 96/57 94/40 94/40 Pulse Ox 82 O2 Delivery Mechanical Ventilator O2 Flow Rate 100.00 06/14/21 06/14/21 06/14/21 06/14/21 11:31 11:45 12:00 12:15 Temp 37.3 Pulse 149 146 Resp 54 30 B/P (MAP) 105/52 Pulse Ox 86 87 86 O2 Delivery Mechanical Ventilator Mechanical Ventilator O2 Flow Rate 100.00 FiO2 100 100 06/14/21 06/14/21 06/14/21 06/14/21 12:17 13:00 13:00 13:30 Pulse 141 140 137 Resp 29 B/P (MAP) 108/60 100/61 Pulse Ox 88 O2 Delivery Mechanical Ventilator O2 Flow Rate 100.00 FiO2 100 06/14/21 06/14/21 06/14/21 06/14/21 13:30 14:00 14:37 14:38 Pulse 135 135 129 130 Resp 23 B/P (MAP) 100/61 118/42 113/48 113/48 Pulse Ox 88 O2 Delivery Mechanical Ventilator O2 Flow Rate 100.00 06/14/21 06/14/21 06/14/21 06/14/21 15:00 15:20 16:00 16:06 Temp 37.3 Pulse 129 114 122 Resp 17 47 30 B/P (MAP) 122/44 99/50 Pulse Ox 88 88 88 O2 Delivery Mechanical Ventilator Mechanical Ventilator O2 Flow Rate 100.00 100.00 FiO2 100 06/14/21 06/14/21 06/14/21 06/14/21 16:57 16:57 17:00 18:00 Pulse 115 109 Resp 29 29 B/P (MAP) 109/52 97/41 Pulse Ox 89 89 87 O2 Delivery Mechanical Ventilator Mechanical Ventilator Mechanical Ventilator O2 Flow Rate 100.00 100.00 FiO2 100 100 06/14/21 06/14/21 06/14/21 06/14/21 18:35 18:42 18:55 18:56 Temp 39.0 39.0 Pulse 84 83 B/P (MAP) 97/41 106/51 06/14/21 06/14/21 06/14/21 06/14/21 18:56 19:00 19:00 19:08 Pulse 84 89 85 82 Resp 30 40 B/P (MAP) 106/51 113/38 Pulse Ox 90 91 O2 Delivery Mechanical Ventilator O2 Flow Rate 100.00 FiO2 100 06/14/21 06/14/21 06/14/21 06/14/21 19:25 20:00 20:00 20:00 Temp 37.6 35.0 Pulse 85 Resp 29 B/P (MAP) 106/41 Pulse Ox 93 91 O2 Delivery Mechanical Ventilator Mechanical Ventilator O2 Flow Rate 100.00 FiO2 100 06/14/21 06/14/21 06/14/21 06/14/21 20:00 20:17 21:00 22:00 Pulse 90 84 82 Resp 29 23 B/P (MAP) 112/50 104/40 109/39 Pulse Ox 93 94 O2 Delivery Mechanical Ventilator Mechanical Ventilator O2 Flow Rate 100.00 100.00 FiO2 100 06/14/21 06/14/21 06/14/21 06/14/21 22:01 22:21 22:22 22:52 Temp 39.4 39.4 39.2 Pulse 80 B/P (MAP) 110/64 06/14/21 06/14/21 06/14/21 06/14/21 23:00 23:18 23:52 23:59 Pulse 92 82 104 104 Resp 24 40 28 B/P (MAP) 107/43 107/59 107/59 Pulse Ox 94 91 O2 Delivery Mechanical Ventilator O2 Flow Rate 100.00 FiO2 100 06/15/21 06/15/21 06/15/21 06/15/21 00:00 00:02 01:00 01:06 Pulse 98 101 88 89 Resp 29 29 B/P (MAP) 113/46 107/59 106/37 Pulse Ox 94 92 O2 Delivery Mechanical Ventilator Mechanical Ventilator O2 Flow Rate 100.00 100.00 06/15/21 06/15/21 06/15/21/28/21 02:00 02:10 02:16 03:00 Pulse 97 96 100 96 Resp 29 30 30 B/P (MAP) 117/38 110/58 96/38 Pulse Ox 95 95 95 O2 Delivery Mechanical Ventilator Mechanical Ventilator O2 Flow Rate 100.00 100.00 FiO2 100 06/15/21 06/15/21 04:00 04:00 Temp 37.1 Pulse 128 Resp 30 B/P (MAP) 101/65 Pulse Ox 92 O2 Delivery Mechanical Ventilator O2 Flow Rate 100.00 06/15/21 00:00 Intake Total 1200 ml Output Total 325 ml Balance 875 ml Blood Pressure Mean: 77 FSBG Bedside Testing Finger Stick Blood Glucose: 154 Blood Glucose Action Taken: notified nurse Diagnostic Imaging Diagonstic Imaging: Xray Plain Films/CT/US/NM/MRI: chest Comments Review of last 2 chest x-rays demonstrate stable ARDS. Reviewed: Reviewed by KERRY Paulson Jun 15, 2021 05:15
--- NOTE | 2021-06-15 07:03 | Occ Therapy Progress Note ---
Therapy Progress Note Pt is currently intubated. OT to monitor pt and will initiate treatment when pt is medically stable to actively participate in skilled therapy. AZUL BRAY Jun 15, 2021 07:03
--- NOTE | 2021-06-15 08:10 | Diagnostic Imaging Report ---
INDICATION: Intubated. COMPARISON: 06/14/2021 TECHNIQUE: Single radiograph of the chest dated 06/15/2021. FINDINGS: Endotracheal tube, enteric catheter, and right-sided chest tube are again identified. The cardiac silhouette is predominantly obscured. Pulmonary vasculature is obscured. Extensive bilateral pulmonary opacities are again identified, slightly improved since the prior examination. No large-volume pleural effusion. No pneumothorax. No acute osseous abnormality. IMPRESSION: Slightly improved though extensive persisting bilateral pulmonary infiltrates. Unchanged lines and tubes. Dictated by: Dictated on workstation # [id number]
--- NOTE | 2021-06-15 08:44 | Discharge Summary ---
Discharge Summary Hospital Course Problems/Dx: (1) Acute respiratory distress syndrome (ARDS) due to COVID-19 virus Status: Acute (2) Acute respiratory failure due to COVID-19 Status: Acute (3) Elevated d-dimer Status: Acute (4) Elevated C-reactive protein Status: Acute (5) Lymphopenia associated with COVID-19 Status: Acute (6) Morbid obesity Status: Chronic (7) Secondary bacterial pneumonia Status: Acute (8) Hypercoagulable state associated with COVID-19 Status: Acute (9) Poor prognosis Status: Acute Hospital Course Date of Admission: Jun 09, 2021 at 21:47 Admission Diagnosis : Acute respiratory failure due to COVID-19 Family Physician/Provider: Demetra Dee Physician Date of Discharge: 06/15/21 Discharge Diagnosis: Acute respiratory distress syndrome due to COVID-19, Cardiac arrest with pulseless ventricular tachycardia Hospital Course: Kathleen Barahona was a 31 year old female who was admitted with acute respiratory failure due to COVID-19. Her oxygen requirement rapidly worsened and she was put on vapotherm. She was given steroids and Actemra. She continued to worsen and was placed on BiPAP. Her respiratory status continued to decline and she was intubated and mechanically ventilated. She self-extubated and was back on BiPAP for a few hours but was re-intubated the same day due to respiratory distress. She was requiring maximal support with the ventilator. She was paralyzed due to ARDS. Her course was complicated by secondary bacterial pneumonia and hypercoagulability associated with COVID-19. She subsequently underwent a cardiac arrest. She was found to be in pulseless ventricular tachycardia. S everal rounds of epinephrine and defibrillation were unsuccessful. She subsequently at 0451 on 06/15/2021. Labs and Pending Lab Test: Laboratory Tests 06/14/21 11:31: Glucometer 141H 06/14/21 17:47: Glucometer 154H 06/14/21 23:43: Glucometer 149H 06/15/21 04:39: Glucometer 92 Microbiology 06/12/21 Gram Stain - Final, Resulted 06/12/21 Sputum Culture - Preliminary, Resulted Usual Mixed Tiffany Moraxella catarrhalis 06/09/21 Blood Culture - Preliminary, Resulted No growth Home Meds Active Reported Ibuprofen 200 Mg Capsule 400-600 Mg PO Q8H PRN Tylenol Extra Strength (Acetaminophen) 500 Mg Tablet 500-1,000 Mg PO Q8H PRN Ventolin Hfa (Albuterol Sulfate) 18 Gm Hfa.aer.ad 1-2 Puff INH Q6H PRN Assessment/Pt Instructions Patient Discharge Planning: <30 minutes discharge planning Discharge Physical Examination Vital Signs Vital Signs Date Time Temp Pulse Resp B/P (MAP) Pulse Ox O2 Delivery O2 Flow Rate FiO2 06/15/21 04:00 128 30 101/65 92 Mechanical Ventilator 100.00 06/15/21 04:00 37.1 06/15/21 04:00 100 Allergies: Coded Allergies: ferric carboxymaltose (Verified Allergy, Intermediate, 11/16/18) Penicillins (Verified Allergy, Unknown, 11/16/18) Discharge Summary Date of Admission Jun 09, 2021 at 21:47 Date of Discharge Discharge Date: Jun 15, 2021 Discharge Time: 04:51 Admission Diagnosis Acute respiratory failure due to COVID-19 Comfort Measures/ Cardiopulmonary Arrest: Cardiac Arrest Date of : Jun 15, 2021 Time of : 04:51 Discharge Diagnosis Acute respiratory distress syndrome due to COVID-19 Secondary bacterial pneumonia Lymphopenia associated with COVID-19 Hypercoagulable state associated with COVID-19 Morbid obesity (1) Acute respiratory distress syndrome (ARDS) due to COVID-19 virus Status: Acute (2) Acute respiratory failure due to COVID-19 Status: Acute (3) Elevated d-dimer Status: Acute (4) Elevated C-reactive protein Status: Acute (5) Lymphopenia associated with COVID-19 Status: Acute (6) Morbid obesity Status: Chronic (7) Secondary bacterial pneumonia Status: Acute (8) Hypercoagulable state associated with COVID-19 Status: Acute (9) Poor prognosis Status: Acute (10) Pulseless ventricular tachycardia Status: Acute (11) Cardiac arrest Status: Acute EYAD HINKLE MD Jun 15, 2021 08:43
== END 2021-06-15 04:51 | disposition expired | DRG 208 ==
LOC: EDUNIT# 18:57 → ER FS 18:58 → ICU 21:47
PROVIDERS: ADMIT Internal Medicine; ATTEND Internal Medicine
PROC: 03HY32Z Insertion of Monitoring Device into Upper Artery, Percutaneous Approach (ICD-10-PCS; principal; 2021-06-11)
PROC: 5A1945Z Respiratory Ventilation, 24-96 Consecutive Hours (ICD-10-PCS; 2021-06-11)
PROC: 0BH17EZ Insertion of Endotracheal Airway into Trachea, Via Natural or Artificial Opening (ICD-10-PCS; 2021-06-11)
PROC: 5A09357 Assistance with Respiratory Ventilation, Less than 24 Consecutive Hours, Continuous Positive Airway Pressure (ICD-10-PCS; 2021-06-11)
PROC: 5A1945Z Respiratory Ventilation, 24-96 Consecutive Hours (ICD-10-PCS; 2021-06-13)
PROC: 5A09357 Assistance with Respiratory Ventilation, Less than 24 Consecutive Hours, Continuous Positive Airway Pressure (ICD-10-PCS; 2021-06-13)
DX: U07.1 COVID-19 (principal); J80 Acute respiratory distress syndrome; J15.9 Unspecified bacterial pneumonia; D68.69 Other thrombophilia; I47.2 Ventricular tachycardia; Z68.41 Body mass index [BMI] 40.0-44.9, adult; R79.82 Elevated C-reactive protein (CRP); D72.810 Lymphocytopenia; E66.01 Morbid (severe) obesity due to excess calories; I46.9 Cardiac arrest, cause unspecified; R73.9 Hyperglycemia, unspecified; Z73.0 Burn-out
CPT/HCPCS: 36415; 71045; 80053; 81000; 82010; 82553; 82805; 82947; 83605; 83735; 84100; 84145; 84478; 84484; 84703; 85007; 85025; 85027; 85379; 85610; 85730; 86141; 87040; 87070; 87077; 87081; 87205; 93005; 93041; 93970; 94002; 94003; 94640; 94660; 94664; 94799; 99291